=== PATIENT | female | born 1995 | race Caucasian/White ===

== ENCOUNTER 2021-09-13 11:30 | Emergency (ER) | payer BC, SELFPAY ==
[2021-09-13 11:55] VITALS: BP 109/66; PULSE 113; RESP 18; TEMP 36.2; O2SAT 99
--- NOTE | 2021-09-13 12:14 | ED.URI ---
HPI - URI/Sore Throat General Chief Complaint: Upper Respiratory Infection Stated Complaint: Fever,Body Aches,Chills Time Seen by Provider: 09/13/21 12:14 Source: patient Mode of arrival: ambulatory Limitations: no limitations History of Present Illness HPI Narrative: 26-year-old female presents with complaint of intermittent fever, chills, body aches, sensitive skin, fatigue for 4 days. Was able to go on a school trip to [place] this weekend due to feeling better. Yesterday had another temp of 103.5 and today 102. Is alternate between ibuprofen and Tylenol to treat her symptoms. No known COVID exposure. Denies nausea vomiting diarrhea. Denies cough, congestion and sore throat. No urinary symptoms. Systems reviewed and negative except as noted above. Related Data Home Medications Medication Instructions Recorded Confirmed norethindrone-e.estradiol-iron 1 tablet PO DAILY 09/13/21 09/13/21 [Blisovi Fe 06/03 (28)] Allergies Allergy/AdvReac Type Severity Reaction Status Date / Time No Known Allergies Allergy Verified 09/13/21 12:06 Review of Systems Review of Systems: CONSTITUTIONAL: Reports fever, chills, or sweats. EYES: Denies visual changes, redness, or discharge. ENT: Denies rhinorrhea, congestion, sore throat, or otalgia. CARDIOVASCULAR: Denies chest pain, palpitations, or edema. RESPIRATORY: Denies cough or dyspnea. GASTROINTESTINAL: Denies abdominal pain, nausea, vomiting, or diarrhea. GENITOURINARY: Denies dysuria or hematuria. SKIN: Denies rash or itching. MUSCULOSKELETAL: Denies back pain, joint pain. Reports myalgia. NEUROLOGIC: Denies headache, numbness, or weakness. PSYCHIATRIC: Denies anxiety or depression. All other systems reviewed are negative, except as documented in HPI. PMFSH Comments At time of signature, agree with nursing past medical, surgical, social and family history. There is no relevant family history pertinent to the presenting complaint. Exam Narrative: GENERAL: This is a well-nourished, well-developed patient, in no apparent distress. HEAD: normocephalic, atraumatic. EYES: PERRL. Sclera clear/white. Vision is grossly intact. EARS: External ears normal, auditory canals clear and without drainage, TMs normal without perforation. Hearing grossly intact. NOSE: External nose normal with no obvious nasal discharge, nares without redness, no rhinorrhea. THROAT: Mucous membranes moist, posterior pharynx clear. NECK: Neck supple, non-tender without lymphadenopathy, masses or thyromegaly. CARDIOVASCULAR: Regular rate and rhythm without murmurs, gallops, or rubs. RESPIRATORY: Clear to auscultation. Breath sounds equal bilaterally. No wheezes, rales, or rhonchi. SKIN: warm, Dry, intact with no suspicious lesions or rash, good texture and turgor. NEURO: awake, alert, and oriented to person, place and time. There were no obvious focal neurologic abnormalities. EXTREMITIES: Normal range of motion to all extremities. Course Course Level of Care: Express Care Visit Vital Signs Vital signs: Vital Signs Temperature 36.2 C L 09/13/21 11:55 Pulse Rate 113 H 09/13/21 11:55 Respiratory Rate 18 09/13/21 11:55 Blood Pressure 109/66 09/13/21 11:55 Pulse Oximetry 99 09/13/21 11:55 Temperature 36.2 C L 09/13/21 11:55 Pulse Rate 113 H 09/13/21 11:55 Respiratory Rate 18 09/13/21 11:55 Blood Pressure 109/66 09/13/21 11:55 Pulse Oximetry 99 09/13/21 11:55 Reviewed MDM - URI/Sore Throat MDM Narrative Medical decision making narrative: Negative COVID and influenza test. Afebrile at urgent care. Will discharge with viral syndrome. Patient is aware of diagnosis, understands and agrees to treatment plan. Anticipatory guidance given. Patient agrees to follow-up as directed and is aware of reasons to seek care at the emergency department. Portions of this record may have been created with voice recognition software Differential Diagnosis Differential diagnosis: Anh
== END 2021-09-13 12:42 | disposition home or self-care (01) ==
PROVIDERS: Emergency Provider Nurse Practitioner Family
DX: B34.9 Viral infection, unspecified (principal); Z20.822 Contact with and (suspected) exposure to COVID-19
CPT/HCPCS: 87426; 87804; 99203; C9803; G0463

== ENCOUNTER 2024-04-12 21:37 | Emergency (ER) | payer BC, SELFPAY ==
--- NOTE | ~2024-04-12 | US_ITS ---
FIRST TRIMESTER ULTRASOUND 04/12/2024 22:47 FIELD ARTILLERY SENIOR SERGEANT Ordering provider: Diya Dumont PA-C History: . 6 weeks, vag bleeding, RLQ pain, r/o ectopic . Comparison: None. FINDINGS: INTRAUTERINE GESTATIONAL SAC: Present. 0.9 cm. Equivalent to 5 weeks and 5 days YOLK SAC: Present. Measures 0.25 cm. POLE: Not seen. UTERUS: The uterus measures 9.2x 4.7x 5.5 cm. in length which is within normal limits. Fibroid is see n measuring 2.1 x 1.6 x 2.3 cm. FREE FLUID: None. OVARIES: Normal in size with the right measuring 4.4x 3.1x 4.5 cm. and the left measuring 2.4x 1.3x 1 .9 cm. Doppler flow is demonstrated within both ovaries. ADNEXAL MASSES: Right Complex cystic lesion is seen most likely corpus luteum measuring 2.7 x 2.6 x 3 .2 cm. IMPRESSION: Intrauterine with nonvisualization of the pole. Gestational sac and yolk sac are note d equivalent to 5 weeks and 5 days gestation. AJ is December 08, 2024. Follow-up advised. Reviewed, dictated and finalized at location A. D ARTILLERY SENIOR SERGEANT IMPRESSION: Intrauterine with nonvisualization of the pole. Gestational sac and yolk sac are noted equivalent to 5 weeks and 5 days gestation. AJ is December 08, 2024. Follow-up advised.
[2024-04-12 21:58] VITALS: BP 113/68; PULSE 81; RESP 14; O2SAT 99
--- NOTE | 2024-04-12 22:07 | ED_ITS ---
HPI - General Chief complaint: Vaginal Bleeding Stated complaint: 6 weeks preg, bleeding past 36 hours Time Seen by Provider: 04/12/24 21:41 Source: patient Mode of arrival: ambulatory Limitations: no limitations History of Present Illness HPI Narrative: Patient is a 29 y/o female who presents to the ED with c/o vaginal bleeding. Patient is and currently approx [address] Reji nichols. States since yesterday afternoon, she has been having brown vaginal spotting. Denies bright red bleeding. Also reports having intermittent pain in her R lower abdomen since yesterday. Contacted the on-call office number today and was referred to the ED to rule out ectopic. Patient reports intermittent nausea, denies vomiting. Denies dysuria or hematuria. Denies fevers. Related Data Home Medications Medication Instructions Recorded Confirmed norethindrone 1 mg-ethinyl 1 tablet PO DAILY 09/13/21 09/13/21 estradiol 20 mcg (21)-iron 75 mg (7) tablet (Blisovi Fe 06/03 (28)) Allergies Allergy/AdvReac Type Severity Reaction Status Date / Time No Known Allergies Allergy Verified 04/12/24 21:38 Review of Systems Review of Systems: All systems reviewed & are unremarkable except as noted in HPI. All systems reviewed & are unremarkable except as noted in HPI and below Exam Narrative: GENERAL: Well appearing, well-nourished, non-toxic, in no acute distress. HEAD: Normocephalic, atraumatic. RESPIRATORY: Airway patent, respirations nonlabored. Clear to auscultation bilaterally, no rales, rhonchi, wheezing. CARDIOVASCULAR: Regular rate and rhythm without murmurs, rubs, or gallops. ABDOMINAL: Soft, mild tenderness palpation in right lower quadrant, nondistended. Normoactive BS. MUSCULOSKELETAL: Moves all extremities. No gross deformities. SKIN: Warm, dry, normal color. NEURO: A&O X3. Speech clear. Cranial nerves II-XII grossly intact. Steady gait. No ataxic movements. PSYCHIATRIC: Appropriate mood and affect. Normal interaction. Course Vital Signs Vital signs: Vital Signs Pulse Rate 81 04/12/24 21:58 Respiratory Rate 14 04/12/24 21:58 Blood Pressure 113/68 04/12/24 21:58 Pulse Oximetry 99 04/12/24 21:58 Oxygen Delivery Room Air 04/12/24 21:58 Pulse Rate 81 04/12/24 21:58 Respiratory Rate 14 04/12/24 21:58 Blood Pressure 113/68 04/12/24 21:58 Pulse Oximetry 99 04/12/24 21:58 Oxygen Delivery Room Air 04/12/24 21:58 MDM - OB/Uterine Contractions MDM Narrative Medical decision making narrative: Patient presented to ED with vaginal bleeding, approximately 6 weeks gestation, . Sent to rule out ectopic. Reporting some discomfort in right lower quadrant. Vital signs are stable upon arrival. Patient is in no acute distress. Beta hCG is 7261. Patient's blood type is A positive, no indication for RhoGAM. Laboratory studies are otherwise unremarkable. UA is clear. OB ultrasound was obtained: IMPRESSION: Intrauterine with nonvisualization of the pole. Gestational sac and yolk sac are noted equivalent to 5 weeks and 5 days gestation. AJ is December 08, 2024. Follow-up advised. Does show normal vascular blood flow to both ovaries. Right-sided complex cystic lesion. Could be explaining pain. No evidence of ectopic . Discussed lab and imaging findings with patient. Advised she will need repeat hormone level in 48 hours to help determine viability of . Will place order for repeat beta hCG on Monday. Advised patient have very close follow-up with OBGYN for further evaluation. Advised to call Monday to inform of ED visit. Advised to continue monitoring bleeding, pelvic rest, given strict return precautions. Patient and family in agreement with plan and feels comfortable discharge home. Discharged in stable condition. Vital signs stable at time of D/C. Medical Records Attestation: I reviewed the patient's medical records. Lab Data Attestation: I reviewed the patient's lab results. 04/12/24 22:52 04/12/24 22:52 Labs: Lab Results 04/12/24 04/12/24 Range/Units 22:05 22:52 WBC 10.2 H (4.5-10.0) K/mm3 RBC 3.82 L (4.2-5.4) M/mm3 Hgb 11.7 L (12.0-15.0) g/dL Hct 33.4 L (37.0-47.0) % MCV 87.4 (80-100) fl MCH 30.6 (26-34) pg MCHC 35.0 (32-36) g/dl RDW 11.3 L (11.5-14.5) % Plt Count 205 (150-375) k/mm3 MPV 9.0 (7.4-10.4) fl Immature Gran % (Auto) 0.4 (0-0.5) % Neut % (Auto) 61.3 (45.5-73.1) % Lymph % (Auto) 29.7 (18.3-44.2) % [place] % (Auto) 6.9 (2.6-8.5) % Eos % (Auto) 1.5 (0-4.4) % Baso % (Auto) 0.2 (0.2-1.2) % Lymph # (Auto) 3.03 (0.9-3.2) K/mm3 [place] # (Auto) 0.7 H (0.1-0.6) K/mm3 Eos # (Auto) 0.2 (0-0.3) K/mm3 Baso # (Auto) 0.0 (0.0-0.1) K/mm3 Abs Immat Gran (auto) 0.04 H (0.00-0.031) K/mm3 Absolute Neuts (auto) 6.3 (1.3-6.7) K/mm3 Absolute Nucleated RBC 0.000 (0.0-0.012) K/mm3 Nucleated RBC % 0.0 (0.0-0.2) % Sodium 135 L (137-145) mmol/L Potassium 3.6 (3.4-5.0) mmol/L Chloride 104 (98-107) mmol/L Carbon Dioxide 25 (22-30) mmol/L Anion Gap 6 (4-12) mmol/L BUN 16 (7-17) mg/dL Creatinine 0.80 (0.7-1.0) mg/dL Estim Creat Clear Calc 86 ml/min Estimated GFR > 60 (59 - ) Glucose 93 (65-110) mg/dL Calcium 8.7 (8.4-10.2) mg/dL Total Bilirubin 0.3 (0.2-1.3) mg/dL AST 20 (14-36) U/L ALT 16 (6-35) U/L Alkaline Phosphatase 49 (38-126) U/L Total Protein 6.0 L (6.3-8.2) g/dL Albumin 3.9 (3.5-5.1) g/dL Beta HCG, Quant 7261.40 mIU/ML Urine Color Yellow (Yellow) Urine Appearance Clear (Clear) Urine pH 6.5 (5.0-9.0) Ur Specific [place] 1.010 (1.001-1.035) Urine Protein Negative (Negative) mg/dL Urine Glucose (UA) Negative (Negative) mg/dL Urine Ketones Negative (Negative) mg/dL Ur Blood (Man) Negative (Negative) Urine Nitrate Negative (Negative) Urine Bilirubin Negative (Negative) Urine Urobilinogen 0.2 (<2.0) mg/dL Leukocyte Esterase Rfl Negative (Negative) MARCO/UL POC Urine HCG, Qual Positive (Negative) Blood Type A Positive Antibody Screen Negative Screen Not Reportable Doses of RhIg Required 0 Imaging Data Attestation: I personally reviewed and interpreted this imaging study as follows: Radiologist's impression: ITS Impressions Obstetrics Ultrasound 04/13/24 00:04 IMPRESSION: Intrauterine with nonvisualization of the pole. Gestational sac and yolk sac are noted equivalent to 5 weeks and 5 days gestation. AJ is December 08, 2024. Follow-up advised. Discharge Plan Discharge Clinical Impression: Threatened Patient Disposition: Home, Self-Care Condition: Stable Instructions: Antibiotic Form, Threatened Miscarriage (ED), Abnormal (Dysfunctional) Uterine Bleeding (ED) Additional Instructions: Continue to monitor bleeding. Follow-up closely with OBGYN for further evaluation. Call office on Monday morning to make follow-up appointment and inform of ED visit. Obtain repeat beta-hCG on Monday at outpatient lab. Take lab order sheet with you. Recommend pelvic rest until seen by OBGYN (no heavy lifting, strenuous activity, intercourse, tampons). Return to the ED if you experience worsening or severe pain, severe bleeding, feeling dizzy or lightheaded, passing out, unable to keep down food or drink, or any other symptoms of concern. Prescriptions: No Action norethindrone-e.estradiol-iron [Blisovi Fe 06/03 (28)] 1 mg-20 mcg (21)/75 mg (7) tablet 1 tablet PO DAILY Other Ambulatory Orders: Beta HCG Quantitative (Routine) Timeframe: 20240415 Location: Determined by Patient Ordered By: Diya Dumont Follow-up/Referrals: Pooja Patrciio MD [Physician] - (OBGYN) UNKNOWN,DOCTOR [Primary Care Provider] - Time of Disposition: 00:21
[2024-04-12 22:14] LABS: BEDSIDEPREGUCG Positive (Negative)
[2024-04-12 23:05] LABS: Basophils Percent Auto 0.2 % (0.2-1.2); Eosinophils Absolute Auto 0.2 K/mm3 (0-0.3); Eosinophils Percent Auto 1.5 % (0-4.4); Hematocrit 33.4 % (37.0-47.0); Hemoglobin 11.7 g/dL (12.0-15.0); Immature Granulocyte Absolute 0.04 K/mm3 (0.00-0.031); Immature Granulocyte Percent A 0.4 % (0-0.5); Lymphocytes Absolute Auto 3.03 K/mm3 (0.9-3.2); Lymphocytes Percent Auto 29.7 % (18.3-44.2); Mean Corpuscular Hemoglobin 30.6 pg (26-34); Mean Corpuscular Volume 87.4 fl (80-100); Monocytes Absolute Auto 0.7 K/mm3 (0.1-0.6); Monocytes Percent Auto 6.9 % (2.6-8.5); Neutrophils Absolute Auto 6.3 K/mm3 (1.3-6.7); Neutrophils Percent Auto 61.3 % (45.5-73.1); Platelet Count Result 205 k/mm3 (150-375); Red Blood Count 3.82 M/mm3 (4.2-5.4); Red Cell Distribution Width 11.3 % (11.5-14.5); White Blood Count 10.2 K/mm3 (4.5-10.0)
[2024-04-12 23:07] LABS: Add Urine Microscopic? NO; Appearance Urine Clear (Clear); Bilirubin Urine Negative (Negative); Blood Urine Negative (Negative); Color Urine Yellow (Yellow); Glucose Urine UA Negative (Negative); Ketones Urine Negative (Negative); Leukocyte Esterase Ur Negative LEU/UL (Negative); Nitrate Urine Negative (Negative); Protein Urine Negative (Negative); Urobilinogen Urine 0.2 mg/dL (<2.0); pH Urine 6.5 (5.0-9.0)
[2024-04-12 23:14] LABS: Alanine Aminotransferase 16 U/L (6-35); Albumin Level 3.9 g/dL (3.5-5.1); Alkaline Phosphatase 49 U/L (38-126); Anion Gap 6 mmol/L (4-12); Aspartate Amino Transferase 20 U/L (14-36); Bilirubin,Total 0.3 mg/dL (0.2-1.3); Blood Urea Nitrogen 16 mg/dL (7-17); Calcium 8.7 mg/dL (8.4-10.2); Carbon Dioxide 25 mmol/L (22-30); Chloride 104 mmol/L (98-107); Estimated CRCL calculation 86 ml/min; Estimated Glomerular Filt Rate > 60; Glucose 93 mg/dL (65-110); Potassium 3.6 mmol/L (3.4-5.0); Sodium 135 mmol/L (137-145)
[2024-04-13 00:27] VITALS: BP 126/72; PULSE 76; RESP 15; O2SAT 98
== END 2024-04-13 00:29 | disposition home or self-care (01) ==
PROVIDERS: Emergency Provider Physician Assistant
DX: O20.0 Threatened abortion (principal); Z3A.01 Less than 8 weeks gestation of pregnancy
CPT/HCPCS: 36415; 76801; 76817; 80053; 81003; 81025; 84702; 85025; 85461; 86850; 86900; 86901; 99284

== ENCOUNTER 2024-04-15 16:27 | Outpatient (CLI) | payer BC, SELFPAY | END 2024-04-15 16:28 | disposition home or self-care (01) | LOC: ANHLAB 16:29 | PROVIDERS: Visit Provider Physician Assistant | DX: O20.0 Threatened abortion (principal); Z3A.00 Weeks of gestation of pregnancy not specified | CPT/HCPCS: 36415; 84702 ==

== ENCOUNTER 2024-04-17 16:12 | Outpatient (CLI) | payer BC, SELFPAY | END 2024-04-17 16:13 | disposition home or self-care (01) | LOC: ANHLAB 16:16 | PROVIDERS: Visit Provider Obstetrics & Gynecology Gynecology | DX: O26.851 Spotting complicating pregnancy, first trimester (principal); Z3A.00 Weeks of gestation of pregnancy not specified | CPT/HCPCS: 36415; 84702 ==

== ENCOUNTER 2024-04-24 14:25 | Outpatient (CLI) | payer BC, SELFPAY | END 2024-04-24 14:26 | disposition home or self-care (01) | PROVIDERS: Visit Provider Obstetrics & Gynecology Gynecology | DX: O26.851 Spotting complicating pregnancy, first trimester (principal); Z3A.00 Weeks of gestation of pregnancy not specified | CPT/HCPCS: 36415; 86850; 86900; 86901 ==

== ENCOUNTER 2024-04-24 15:20 | Outpatient (CLI) | payer BC, SELFPAY ==
--- NOTE | ~2024-04-24 | US_ITS ---
EXAMINATION: US OB <= 14 weeks fetus DATE: 04/24/2024 15:40 INDICATION: Inconclusive viability TECHNIQUE: Real-time pelvic ultrasound utilizing transabdominal probe was performed. The angel silva radiologist was not present for the study. COMPARISON: None. FINDINGS: The uterus measures 9.0 x 4.3 x 5.4 cm. There is an intrauterine gestational sac. A yolk sac and fet al pole are identified. The crown rump length measures 10 mm, which correlates with an estimated gest ational age of 7 weeks and 0 days. heart motion is identified measuring 154 beats per minute (b pm) by M-mode Doppler. There are a couple small hypoechoic likely fibroids along the anterior uterus measuring 3.5 cm and 1.7 cm in maximal diameters. The right ovary measures 4.0 x 3.0 x 4.2 cm. There is a 3.3 cm centrally anechoic likely corpus luteu m cyst in the right ovary. The left ovary measures 2.2 x 1.7 x 1.9 cm. There is no free fluid in the pelvis. IMPRESSION: 1. Single living fetus with heart rate of 154 bpm. 2. Gestational age by ultrasound of 7 weeks 0 day(s) +/- 4 day(s) with ultrasound estimated date of delivery (AJ) of 12/11/2024. 3. A couple fibers measuring 1.7 cm 3.5 cm along the anterior uterine body. Reviewed, dictated and finalized at location A. ARIAN IMPRESSION: 1. Single living fetus with heart rate of 154 bpm. 2. Gestational age by ultrasound of 7 weeks 0 day(s) +/- 4 day(s) with ultraso und estimated date of delivery (AJ) of 12/11/2024. 3. A couple fibers measuring 1.7 cm 3.5 cm along the anterior uterine body.
== END 2024-04-24 15:21 | disposition home or self-care (01) ==
LOC: MICIMG 15:21
PROVIDERS: PCP Obstetrics & Gynecology Gynecology; Visit Provider Obstetrics & Gynecology Gynecology
DX: O36.80X0 Pregnancy with inconclusive fetal viability, not applicable or unspecified (principal); Z3A.01 Less than 8 weeks gestation of pregnancy
CPT/HCPCS: 76801

== ENCOUNTER 2024-07-15 15:47 | Outpatient (CLI) | payer BC, SELFPAY ==
[2024-07-15 16:02] LABS: Hematocrit 31.9 % (37.0-47.0); Hemoglobin 11.2 g/dL (12.0-15.0); Mean Corpuscular HGB Conc 35.1 g/dl (32-36); Mean Corpuscular Hemoglobin 30.8 pg (26-34); Mean Corpuscular Volume 87.6 fl (80-100); Mean Platelet Volume 8.6 fl (7.4-10.4); Platelet Count Result 216 k/mm3 (150-375); Red Blood Count 3.64 M/mm3 (4.2-5.4); Red Cell Distribution Width 12.3 % (11.5-14.5); White Blood Count 10.1 K/mm3 (4.5-10.0)
[2024-07-15 16:39] LABS: Alanine Aminotransferase 14 U/L (6-35); Albumin Level 3.9 g/dL (3.5-5.1); Alkaline Phosphatase 59 U/L (38-126); Anion Gap 11 mmol/L (4-12); Aspartate Amino Transferase 21 U/L (14-36); Bilirubin,Total 0.2 mg/dL (0.2-1.3); Blood Urea Nitrogen 13 mg/dL (7-17); CRP 0.9 mg/dL (<1.0); Calcium 8.9 mg/dL (8.4-10.2); Carbon Dioxide 20 mmol/L (22-30); Chloride 103 mmol/L (98-107); Estimated Glomerular Filt Rate > 60; Glucose 97 mg/dL (65-110); Potassium 3.7 mmol/L (3.4-5.0); Sodium 134 mmol/L (137-145)
[2024-07-15 16:45] LABS: Erythrocyte Sedimentation Rate 22 mm/hr (0-20)
[2024-07-15 18:34] LABS: Iron 75 ug/dL (37-170)
[2024-07-15 18:45] LABS: Percent Iron Saturation 25 % (20-50)
== END 2024-07-15 15:48 | disposition home or self-care (01) ==
LOC: ANHLAB 15:49
PROVIDERS: PCP Obstetrics & Gynecology Gynecology; Visit Provider Internal Medicine Hematology & Oncology
DX: R79.89 Other specified abnormal findings of blood chemistry (principal)
CPT/HCPCS: 36415; 80053; 81256; 82728; 83540; 83550; 84238; 85027; 85652; 86140

== ENCOUNTER 2024-07-23 15:20 | Outpatient (CLI) | payer BC, SELFPAY ==
--- NOTE | ~2024-07-23 | US_ITS ---
EXAMINATION: US OB /maternal detail DATE: 07/23/2024 15:51 INDICATION: anatomic survey. TECHNIQUE: Real-time ultrasound of the pelvis was performed. COMPARISON: Ultrasound 04/24/2024, 04/12/2024 FINDINGS: There is a single living fetus in transverse lie. The placenta is posterior, 7 cm from the cervix. T he cervical length is 4.8 cm on transabdominal images, which is normal. heart rate is 152 beats per minute (bpm). The amniotic fluid volume is subjectively normal. There are 2.8 cm and 3.3 cm subs erosal fibroids anteriorly. The following biometric data were obtained: Biparietal diameter (BPD): 4.7 cm; head circumference (HC): 18.3 cm; abdominal circumference (AC): 15 .5 cm; femur length (FL): 3.0 cm. These measurements are concordant. Estimated weight is 335 g +/- 50 g, which correlates with the 62nd percentile when 12/11/24 is u sed as estimated date of delivery. As single measurements, these parameters are each equal to the following estimated gestational ages: BPD: 20 weeks 2 days. HC: 20 weeks 5 days. AC: 20 weeks 5 days. FL: 19 weeks 3 days. estimated gestational age based solely on measurements from this exam is 20 weeks 2 days +/- 1 weeks 3 days. The cerebral ventricles, cerebellum, cisterna magna, nuchal fold, and spine are normal. The heart is normal. The diaphragm, stomach, kidneys, and bladder are normal. There are two umbilical arteries to yield a 3-vessel cord. The cord insertion is normal. IMPRESSION: 1. Single living fetus in transverse lie. 2. Estimated weight is 335 g +/- 50 g, which correlates with the 62nd percentile when 12/11/24 is used as estimated date of delivery. This date was set by ultrasound on 04/24/2024. 3. Normal anatomic survey. 4. Uterine fibroids. Reviewed, dictated and finalized at location B. IMPRESSION: 1. Single living fetus in transverse lie. 2. Estimated weight is 335 g +/- 50 g, which correlates with the 62nd rcentile when 12/11/24 is used as estimated date of delivery. This date was set by ultrasound on 04/24/2024. 3. Normal anatomic survey. 4. Uterine fibroids.
== END 2024-07-23 15:21 | disposition home or self-care (01) ==
PROVIDERS: PCP Obstetrics & Gynecology Gynecology; Visit Provider Obstetrics & Gynecology Gynecology
DX: Z36.9 Encounter for antenatal screening, unspecified (principal); Z3A.20 20 weeks gestation of pregnancy
CPT/HCPCS: 76805

== ENCOUNTER 2024-10-13 15:27 | Observation (INO) | payer BC, OTHER, SELFPAY ==
[2024-10-13] VITALS (57 sets, daily range): BP systolic 123–138; BP diastolic 63–86; PULSE 61–120; O2SAT 97–100; BMI 23.8
[2024-10-13 16:23] LABS: Add Urine Microscopic? YES; Appearance Urine Clear (Clear); Bacteria Urine 2+ /hpf; Bilirubin Urine Negative (Negative); Blood Urine 2+ (Negative); Color Urine Yellow (Yellow); Glucose Urine UA Negative (Negative); Ketones Urine Negative (Negative); Leukocyte Esterase Ur 2+ LEU/UL (Negative); Need Manual Microscopic Reviewed; Nitrate Urine Negative (Negative); Non Pathogenic Casts 0-2; Protein Urine Negative (Negative); RBC Urine 0-2 /hpf (0-2); Squamous Epithelial Cell Urine Few /hpf (Few); Urobilinogen Urine 0.2 mg/dL (<2.0); WBC Urine 21-50 /hpf (0-3); pH Urine 6.5 (5.0-9.0)
[2024-10-13] MEDS: TERBUTALINE SULFATE 1 MG/ML VIAL 0.25 MG SUB-Q ×2 (16:30→18:25)
--- NOTE | 2024-10-13 16:47 | OBADM ---
This patient, Theresa Joseph, admitted to the OB room OB Post 115 for observation. Patient/family oriented to hospital policies and general routines including ID bracelet, bed and alarms, visiting hours, pain management, procedures, bathroom and other care routines, personal items, smoking policy, room service/diet, and visiting hours. Patient/Family are encouraged to report perceived risks to care and to ask questions if they do not understand what they are told or what they should do.
[2024-10-13 17:01] LABS: Fetal Fibronectin Negative
--- OUTSIDE RECORDS SUMMARY | 2024-10-13 18:11 | XMS_ITS | Clinical Summary ---
[facility] Address [address] [address] Care Team Providers Care Bunghole Borer Name Role Phone Unavailable Primary Care Provider Unavailabl e Allergies No known active allergies Medications PNV no.153/FA/om3/d rubio/epa/fish ( GUMMIES ORAL) Take by mouth daily. Active OMEGA-3 FATTY ACIDS-FISH OIL ORAL Take 800 mg by mouth daily. Active choline salicyl/mag salicylate (CHOLINE,MAGNES IUM SALICYLATE ORAL) Take 267 mg by mouth daily. Active clobetasoL 0.05 % topical gel (TEMOVATE) Apply to affected area Continuous as needed for Other (See Comment) (Exzema). Active Active Problems No known active problems Encounters Date Type Department Care Team Description 08/13/2024 External Device Data STL ABSTRACTION Provider, Abstract 07/31/2024 4:15 PM CDT Telephone Check Up [facility] - [place] [address] [place] [id number] Cliff Amin MD Elevated ferritin (Primary Dx) 07/24/2024 Orders Only [facility] - [place] [address] [place] [address] Cliff Amin MD 07/20/2024 External Device Data STL ABSTRACTION Provider, Abstract 07/19/2024 External Device Data STL ABSTRACTION Provider, Abstract 07/17/2024 External Device Data STL ABSTRACTION Provider, Abstract 07/16/2024 External Device Data STL ABSTRACTION Provider, Abstract 07/16/2024 External Device Data STL ABSTRACTION Provider, Abstract 07/16/2024 Orders Only [facility] [address] [place] [address] Cliff Amin MD 07/15/2024 3:00 PM PERSONAL INJURY PARALEGAL Office Visit [facility] [address] [place] [address] Cliff Amin MD Elevated ferritin (Primary Dx) from Last 3 Months Family History Medical History Relation Name Comments No Known Problems Father No Known Problems Mother Heart Disease Sister 1 No Known Problems Sister 2 Relation Name Status Comments Father Alive Mother Alive Sister 1 Alive Sister 2 Alive Social History Tobacco Use Types Packs/Day Years Used Date Smoking Tobacco: Never Smokeless Tobacco: Never Alcohol Use Standard Drinks/Week Comments Not Currently 0 (1 standard drink = 0.6 oz pure alcohol) Before prenancy- occasionally Comments Unknown Sex and Gender Information Value Date Recorded Sex Assigned at Not on file Legal Sex Female 8:46 AM PERSONAL INJURY PARALEGAL Gender Identity Not on file Sexual Orientation Not on file Last Filed Vital Signs Vital Sign Reading Time Taken Comments Blood Pressure 111/74 07/15/2024 3:02 PM PERSONAL INJURY PARALEGAL Pulse 95 07/15/2024 3:02 PM PERSONAL INJURY PARALEGAL Temperature 36.7 C (98.1 F) 07/15/2024 3:02 PM PERSONAL INJURY PARALEGAL Respiratory Rate 16 07/15/2024 3:02 PM PERSONAL INJURY PARALEGAL Oxygen Saturation 96% 07/15/2024 3:02 PM PERSONAL INJURY PARALEGAL Inhaled Oxygen Concentration - - Weight 65.9 kg (145 lb 3.2 oz) 07/15/2024 3:02 P M PERSONAL INJURY PARALEGAL Height 170.2 cm (5' 7) 07/15/2024 3:02 PM PERSONAL INJURY PARALEGAL Body Mass Index 22.74 07/15/2024 3:02 PM PERSONAL INJURY PARALEGAL Plan of Treatment Upcoming Encounters Date Type Department Care Team (Late st Contact Info) Description 02/03/2025 11:45 AM CDT Office Visit [facility] [address] [place] [address] Cliff Amin MD [address] [place] [address] Health Maintenance Due Date Last Done Comments DTAP/TDAP/TD VACCINES (1 - Tdap) 01/09/2012 HEPATITIS B VACCINES (1 of 3 - 19+ 3-dose series) 01/09/2012 HPV/Cotest (21-29) 2014 CERVICAL CANCER SCREENING 2023 HPV/Cotest (30-65) 2023 PAP SMEAR 2023 INFLUENZA VACCINE (#1) 2023 HPV VACCINES Aged Out No longer eligi ble based on patient's age to complete this topic Procedures Procedure Name Priority Date/Time Associated Diagnosis Comments COMPREHENSIVE METABOLIC PANEL Routine 07/15/2024 11:23 AM PERSONAL INJURY PARALEGAL CHG SOLUBLE TRANSFERRIN RECEPTOR Routine 07/15/2024 9:46 AM PERSONAL INJURY PARALEGAL from Last 3 Months Results * COMPREHENSIVE METABOLIC PANEL (07/15/2024 11:23 AM PERSONAL INJURY PARALEGAL) Blood us Cliff Amin MD CHEMISTRY ORDERABLES Final Resu lt * CHG SOLUBLE TRANSFERRIN RECEPTOR (07/15/2024 9:46 AM PERSONAL INJURY PARALEGAL) us Cliff Amin MD CHG - LABORATORY Final Result from Last 3 Months Insurance [facility] BLUE ACCESS/TRUE BLUE PPO
[2024-10-13] MEDS: NIFEdipine 10 MG CAPSULE PO (19:27)
[2024-10-13] MEDS: NITROFURANTOIN MONOHYD MACROCR 100 MG CAP PO (20:15)
--- NOTE | 2024-10-30 13:38 | PM.OBTRLD ---
OB - Triage/Final Diagnosis Visit Information Comments/Additional reasons for admission: I have assessed the risk for this patient, Theresa Joseph, and determined that she would benefit from observation care. Evaluation Laboratory results: Laboratory Tests 10/13/24 10/13/24 16:01 16:30 Urine Color Yellow Urine Appearance Clear Urine pH 6.5 Ur Specific [place] 1.010 Urine Protein Negative Urine Glucose (UA) Negative Urine Ketones Negative Ur Blood (Man) 2+ H Urine Nitrate Negative Urine Bilirubin Negative Urine Urobilinogen 0.2 Add Ur Microanalysis Reviewed Leukocyte Esterase Rfl 2+ H Urine RBC 0-2 Urine WBC 21-50 H Ur Squamous Epith Cells Few Urine Bacteria 2+ H Urine Casts 0-2 Fibronectin Negative Final Diagnosis (1) contractions: Code(s): O47.00 - False labor before 37 completed weeks of gestation, unspecified trimester Status: Acute
== END 2024-10-13 20:40 | disposition home or self-care (01) ==
PROVIDERS: Admitting Provider Obstetrics & Gynecology; Visit Provider Obstetrics & Gynecology
DX: O47.03 False labor before 37 completed weeks of gestation, third trimester (principal); Z3A.32 32 weeks gestation of pregnancy
CPT/HCPCS: 81001; 82731; 87086; 96372; A9270; G0378; G0379; J3105

== ENCOUNTER 2024-10-14 16:43 | Observation (INO) | payer BC, OTHER, SELFPAY ==
[2024-10-14] VITALS (13 sets, daily range): BP systolic 114–142; BP diastolic 70–87; PULSE 74–109
--- OUTSIDE RECORDS SUMMARY | 2024-10-14 16:48 | XMS_ITS | Clinical Summary ---
[facility] Organization [facility] Address [address] [place] [address] Care Team Providers Care Learning Technologies Specialist Name Role Phone Unavailable Primary Care Provider [...] 07/31/2024 4:15 PM CDT Telephone Check Up [facility] Oncology and Hematology - [place] [address] [place] [id number] Cliff Amin MD Elevated ferritin (Primary Dx) 07/24/2024 Orders Only [facility] Oncology and Hematology - [place] [address] [place] [address] Cliff Amin MD 07/20/2024 External Device Data STL ABSTRACTION Provider, Abstract 07/19/2024 External Device Data STL ABSTRACTION Provider, Abstract 07/17/2024 External Device Data STL ABSTRACTION Provider, Abstract 07/16/2024 External Device Data STL ABSTRACTION Provider, Abstract 07/16/2024 External Device Data STL ABSTRACTION Provider, Abstract 07/16/2024 Orders Only [facility] Oncology and Hematology [facility] [address] [place] [address] Cliff Amin MD 07/15/2024 3:00 PM READING INTERVENTION TEACHER Office Visit [facility] Oncology and Hematology [facility] [address] [place] [address] Cliff Amin MD Elevated ferritin [...] on file Legal Sex Female 8:46 AM READING INTERVENTION TEACHER Gender Identity Not on file Sexual Orientation Not on file Last Filed Vital Signs Vital Sign Reading Time Taken Comments Blood Pressure 111/74 07/15/2024 3:02 PM READING INTERVENTION TEACHER Pulse 95 07/15/2024 3:02 PM READING INTERVENTION TEACHER Temperature 36.7 C (98.1 F) 07/15/2024 3:02 PM READING INTERVENTION TEACHER Respiratory Rate 16 07/15/2024 3:02 PM READING INTERVENTION TEACHER Oxygen Saturation 96% 07/15/2024 3:02 PM READING INTERVENTION TEACHER Inhaled Oxygen Concentration - - Weight 65.9 kg (145 lb 3.2 oz) 07/15/2024 3:02 P M READING INTERVENTION TEACHER Height 170.2 cm (5' 7) 07/15/2024 3:02 PM READING INTERVENTION TEACHER Body Mass Index 22.74 07/15/2024 3:02 PM READING INTERVENTION TEACHER Plan of Treatment Upcoming Encounters Date Type Department Care Team (Late st Contact Info) Description 02/03/2025 11:45 AM CDT Office Visit [facility] Oncology and Hematology [facility] [address] [place] [address] Cliff Amin MD [address] [place] [address] Health Maintenance Due Date Last [...] COMPREHENSIVE METABOLIC PANEL Routine 07/15/2024 11:23 AM READING INTERVENTION TEACHER CHG SOLUBLE TRANSFERRIN RECEPTOR Routine 07/15/2024 9:46 AM READING INTERVENTION TEACHER from Last 3 Months Results * COMPREHENSIVE METABOLIC PANEL (07/15/2024 11:23 AM READING INTERVENTION TEACHER) Blood us Cliff Amin MD CHEMISTRY ORDERABLES Final Resu lt * CHG SOLUBLE TRANSFERRIN RECEPTOR (07/15/2024 9:46 AM READING INTERVENTION TEACHER) us Cliff Amin MD CHG - LABORATORY Final Result from Last 3 Months Insurance [facility] BLUE ACCESS/TRUE BLUE PPO
--- NOTE | 2024-10-14 17:00 | OBADM ---
This patient, Theresa Joseph, admitted to the OB room OB Post 113 for observation. Patient/family oriented to hospital policies and general routines including ID bracelet, bed and alarms, visiting hours, pain management, procedures, bathroom and other care routines, personal items, smoking policy, room service/diet, and visiting hours. Patient/Family are encouraged to report perceived risks to care and to ask questions if they do not understand what they are told or what they should do.
[2024-10-14] MEDS: TERBUTALINE SULFATE 1 MG/ML VIAL 0.25 MG SUB-Q (18:39)
[2024-10-14] MEDS: NIFEdipine 10 MG CAPSULE PO (18:39)
--- NOTE | 2024-10-16 08:27 | PM.OBTRLD ---
OB - Triage/Final Diagnosis Visit Information Reason for evaluation: threatened labor Comments/Additional reasons for admission: I have assessed the risk for this patient, Theresa Fragoso Opal, and determined that she would benefit from observation care.
== END 2024-10-14 20:14 | disposition home or self-care (01) ==
PROVIDERS: Admitting Provider Obstetrics & Gynecology Gynecology; Visit Provider Obstetrics & Gynecology Gynecology
DX: O47.03 False labor before 37 completed weeks of gestation, third trimester (principal); Z3A.32 32 weeks gestation of pregnancy
CPT/HCPCS: 96372; A9270; G0378; G0379; J3105

== ENCOUNTER 2024-10-15 13:11 | Observation (INO) | payer BC, OTHER, SELFPAY ==
--- NOTE | ~2024-10-15 | US_ITS ---
EXAMINATION: US umbilical doppler, US OB follow up DATE: 10/31/2024 08:55 INDICATION: Elevated umbilical Dopplers on prior examination TECHNIQUE: Real-time transabdominal obstetric ultrasound. Umbilical Doppler examination performed. FINDINGS: Comparison to multiple prior studies sequentially, with oldest reviewed study dated 2023. There is a single living fetus in vertex presentation. The placenta is anterior/fundal without place nta previa. There is an anterior succenturiate lobe. cardiac activity and movement is noted with a heart rate of 131 beats per minute. T he amniotic fluid volume is normal. ALDO measures 14 cm. The following biometric data were obtained: BPD: 85mm corresponds to gestational age 34 weeks 0 days. Head circumference: 306mm corresponds to gestational age 34 weeks 1 days. Abdominal circumference: 287mm corresponds to gestational age 32 weeks 5 days. Femur length: 61mm corresponds to gestational age 31 weeks 4 days. Estimated weight: 2019grams +/- 302grams, 6.4% by Hadlock method.] Umbilical artery pulsed Doppler demonstrates peak systolic to end-diastolic velocity ratios (S/D rati os) of 5.5 near the fetus, 4.8 in the mid cord, and 5.3 near the placenta (5th percentile = 2.07, 95t h percentile = 3.53). IMPRESSION: 1. Single living intrauterine in vertex presentation with an estimated gestational age of 34 weeks 4 days by inititial ultrasound. Diminished interval growth. 2. Anterior is succenturiate placenta without previa. 3: Elevated umbilical Doppler systolic/diastolic ratios indicate high resistance to blood flow which can be associated with placental insufficiency, IUGR and preeclampsia. Reviewed, dictated and finalized at location A. IMPRESSION: 1. Single living intrauterine in vertex presentation with an estimat ed gestational age of 34 weeks 4 days by inititial ultrasound. Diminished inter vitor growth. 2. Anterior is succenturiate placenta without previa. 3: Elevated umbilical Doppler systolic/diastolic ratios indicate high resistanc e to blood flow which can be associated with placental insufficiency, IUGR and preeclampsia.
--- NOTE | ~2024-10-15 | US_ITS ---
EXAMINATION: US OB follow up, US umbilical doppler DATE: 10/17/2024 08:57 INDICATION: Decelerations. Contractions. TECHNIQUE: Real-time transabdominal obstetric ultrasound. Umbilical artery Doppler examination also p erformed. FINDINGS: Comparison to multiple prior studies sequentially, with oldest reviewed study dated 2023. There is a single living fetus in vertex presentation. The placenta is fundal without placenta previ a. cardiac activity and movement is noted with a heart rate of 139 beats per minute. T he amniotic fluid volume is subjectively normal. Umbilical artery pulsed Doppler demonstrates peak systolic to end-diastolic velocity ratios (S/D rati os) 3.9 in the mid cord, and 6.9 near the placenta (5th percentile = 2.07, 95th percentile = 2.53). Elevated systolic/diastolic ratio in the umbilical artery is an indicator of increased resistance to blood flow in the umbilical artery, often suggesting placental or health concerns. The following biometric data were obtained: BPD: 84mm corresponds to gestational age 33 weeks 5 days. Head circumference: 306mm corresponds to gestational age 34 weeks 1 days. Abdominal circumference: 273mm corresponds to gestational age 31 weeks 2 days. Femur length: 60mm corresponds to gestational age 31 weeks 2 days. Estimated weight: 1833grams +/- 275grams, 18.2%.] IMPRESSION: 1. Single living intrauterine in vertex presentation with an estimated gestational age of 32 weeks 4 days by inititial ultrasound. Appropriate interval growth. 2. Normal placenta. 3: Elevated systolic/diastolic ratio in the umbilical artery, an indicator of increased resistance t o blood flow in the umbilical artery, often suggesting placental or health concerns. Reviewed, dictated and finalized at location A. IMPRESSION: 1. Single living intrauterine in vertex presentation with an estimat ed gestational age of 32 weeks 4 days by inititial ultrasound. Appropriate int erval growth. 2. Normal placenta. 3: Elevated systolic/diastolic ratio in the umbilical artery, an indicator of increased resistance to blood flow in the umbilical artery, often suggesting pl acental or health concerns.
--- NOTE | ~2024-10-15 | US_ITS ---
EXAMINATION: US umbilical doppler DATE: 10/24/2024 09:02 INDICATION: Third trimester with previously elevated umbilical arterial Doppler peak systol ic to diastolic velocity ratios. TECHNIQUE: Real-time ultrasound of the pelvis was performed. The interpreting radiologist was not pre sent for the study. COMPARISON: 10/17/2024 FINDINGS: There is a single living fetus in vertex presentation. The placenta is fundal with redemonstration o f an anterior succenturiate lobe. heart rate is 142 beats per minute (bpm). The amniotic fluid volume is subjectively normal. The umbilical artery demonstrates a peak systolic and diastolic velocity ratio of 5.4 at the fetus, 4 .4 in the mid cord and 2.4 near the placenta (5th%-95%: 2.11-3.67 at 33 weeks). IMPRESSION: 1. Single living fetus in vertex presentation with heart rate of 142 bpm. 2. Elevated umbilical artery peak systolic to diastolic velocity ratios at the mid cord and ins ertion of 4.4 and 5.4 respectively (5th%-95%: 2.11-3.67 at 33 weeks). 3. Fundal placenta with anterior succenturiate lobe. Reviewed, dictated and finalized at location A. IMPRESSION: 1. Single living fetus in vertex presentation with heart rate of 142 bpm . 2. Elevated umbilical artery peak systolic to diastolic velocity ratios at the mid cord and insertion of 4.4 and 5.4 respectively (5th%-95%: 2.11-3.67 a t 33 weeks). 3. Fundal placenta with anterior succenturiate lobe.
--- NOTE | ~2024-10-15 | US_ITS ---
EXAMINATION: US OB limited DATE: 10/16/2024 12:57 INDICATION: Variable cardiac decelerations. Assess amniotic fluid index. TECHNIQUE: Real-time ultrasound of the pelvis was performed. The interpreting radiologist was not pre sent for the study. COMPARISON: None. FINDINGS: There is a single living fetus in vertex presentation. The placenta is fundal and not low-lying. On cine images there appears to be a secondary anterior succenturiate lobe of the placenta. heart rate is 152 beats per minute (bpm). The amniotic fluid index is 17.0 cm, which is normal (5th%-95%: 8 .6-24.2 cm at 32 weeks estimated gestational age). 3.3 x 2.6 x 1.1 cm ovoid hypoechoic mass in the an terior abdominal wall consistent with a uterine fibroid. IMPRESSION: 1. Single living fetus in vertex presentation with heart rate of 152 bpm. 2. Normal amniotic fluid index of 17.0 cm. 3. Fundal placenta with suggestion of an anterior succenturiate lobe. 4. Uterine fibroid along the anterior uterine wall. Reviewed, dictated and finalized at location A. IMPRESSION: 1. Single living fetus in vertex presentation with heart rate of 152 bpm . 2. Normal amniotic fluid index of 17.0 cm. 3. Fundal placenta with suggestion of an anterior succenturiate lobe. 4. Uterine fibroid along the anterior uterine wall.
--- OUTSIDE RECORDS SUMMARY | 2024-10-15 13:26 | XMS_ITS | Clinical Summary ---
Author Organization [facility] Address [address] [place] [address] Care Team Providers Care Health Science Instructor Name Role Phone Unavailable Primary Care Provider [...] Hematology - [place] [address] [place] [phone] Cliff Amin MD Elevated ferritin (Primary Dx) 07/24/2024 Orders Only [facility] Oncology and Hematology - [place] [address] [place] [address] Cliff Amin MD 07/20/2024 External Device Data STL ABSTRACTION Provider, Abstract 07/19/2024 External Device Data STL ABSTRACTION Provider, Abstract 07/17/2024 External Device Data STL ABSTRACTION Provider, Abstract 07/16/2024 External Device Data STL ABSTRACTION Provider, Abstract 07/16/2024 External Device Data STL ABSTRACTION Provider, Abstract 07/16/2024 Orders Only [facility] Oncology and Hematology [facility] [address] [place] [address] Cliff Amin MD 07/15/2024 3:00 PM RADIO STATION OPERATOR Office Visit [facility] Oncology and Hematology [facility] [address] [place] [address] Cliff Amin MD Elevated ferritin [...] on file Legal Sex Female 8:46 AM RADIO STATION OPERATOR Gender Identity Not on file Sexual Orientation Not on file Last Filed Vital Signs Vital Sign Reading Time Taken Comments Blood Pressure 111/74 07/15/2024 3:02 PM RADIO STATION OPERATOR Pulse 95 07/15/2024 3:02 PM RADIO STATION OPERATOR Temperature 36.7 C (98.1 F) 07/15/2024 3:02 PM RADIO STATION OPERATOR Respiratory Rate 16 07/15/2024 3:02 PM RADIO STATION OPERATOR Oxygen Saturation 96% 07/15/2024 3:02 PM RADIO STATION OPERATOR Inhaled Oxygen Concentration - - Weight 65.9 kg (145 lb 3.2 oz) 07/15/2024 3:02 P M RADIO STATION OPERATOR Height 170.2 cm (5' 7) 07/15/2024 3:02 PM RADIO STATION OPERATOR Body Mass Index 22.74 07/15/2024 3:02 PM RADIO STATION OPERATOR Plan of Treatment Upcoming Encounters Date Type Department Care Team (Late st Contact Info) Description 02/03/2025 11:45 AM CDT Office Visit [facility] Oncology and Hematology [facility] [address] [place] [address] Cliff Amin MD [address] [place] [address] Health Maintenance Due Date Last [...] COMPREHENSIVE METABOLIC PANEL Routine 07/15/2024 11:23 AM RADIO STATION OPERATOR CHG SOLUBLE TRANSFERRIN RECEPTOR Routine 07/15/2024 9:46 AM RADIO STATION OPERATOR from Last 3 Months Results * COMPREHENSIVE METABOLIC PANEL (07/15/2024 11:23 AM RADIO STATION OPERATOR) Blood us Cliff Amin MD CHEMISTRY ORDERABLES Final Resu lt * CHG SOLUBLE TRANSFERRIN RECEPTOR (07/15/2024 9:46 AM RADIO STATION OPERATOR) us Cliff Amin MD CHG - LABORATORY Final Result from Last 3 Months Insurance [facility] BLUE ACCESS/TRUE BLUE PPO
[2024-10-15 13:45] VITALS: BP 125/81; PULSE 81
[2024-10-15 14:00] VITALS: BP 122/77; PULSE 84
[2024-10-15] MEDS: NIFEdipine 10 MG CAPSULE PO ×2 (14:12→15:01)
--- NOTE | 2024-10-15 17:22 | PC.NURSE ---
[phone]- paged Dr. Patricio. [phone]- Called Dr. Patricio. Informed of contractions noted q 5-7 min. Pt states that she feels them, but the are less intense than on admission. Orders received for Terbutaline and Celestone.
[2024-10-15] MEDS: TERBUTALINE SULFATE 1 MG/ML VIAL 0.25 MG SUB-Q (17:39)
[2024-10-15] MEDS: BETAMETHASONE SOD PHOS/ACETATE 30 MG/5 ML VIAL 12 MG IM (18:20)
[2024-10-15 18:22] VITALS: BP 126/78; PULSE 87
[2024-10-15] MEDS: NIFEdipine 10 MG CAPSULE 20 MG PO ×2 (19:09→23:36)
[2024-10-15 19:38] VITALS: BP 125/61; PULSE 127
[2024-10-15 21:42] VITALS: BP 117/66; PULSE 83
[2024-10-15 23:38] VITALS: BP 120/78; PULSE 102
[2024-10-16] VITALS (14 sets, daily range): BP systolic 124–137; BP diastolic 67–88; PULSE 86–111; RESP 18; TEMP 36.2–36.7; O2SAT 97–98; BMI 23.8
[2024-10-16] MEDS: NIFEdipine 10 MG CAPSULE 20 MG PO ×6 (03:14→22:56)
--- NOTE | 2024-10-16 08:24 | PM.OBTRLD ---
OB - Triage/Final Diagnosis Visit Information Reason for evaluation: threatened labor Comments/Additional reasons for admission: Patient returned with increased contractions on Procardia 10 q 4. Given extra dose and increased to 20 q 4. Contractions have decreased in intensity and frequency. Good FM. Tolerating med without side effects. Steroids given yesterday and will repeat today as cervix and frequent return to L&D for contractions. DC on bedrest/pelvic rest and continue meds. I have assessed the risk for this patient, Theresa Joseph, and determined that she would benefit from observation care. Evaluation Variability: Average (6-10) monitor accelerations: Present monitor decelerations: None Vital signs: Vital Signs - 24 hr 10/15/24 13:45 10/15/24 14:00 10/15/24 18:22 Temperature Pulse Rate 81 84 87 Respiratory Rate Blood Pressure 125/81 122/77 126/78 Pulse Oximetry 10/15/24 19:38 10/15/24 21:42 10/15/24 23:38 Temperature Pulse Rate 127 H 83 102 H Respiratory Rate Blood Pressure 125/61 117/66 120/78 Pulse Oximetry 10/16/24 03:11 10/16/24 03:12 10/16/24 03:12 Temperature 97.3 F L 97.3 F L Pulse Rate 90 94 Respiratory Rate 18 Blood Pressure 124/67 124/67 Pulse Oximetry 98 98 10/16/24 07:00 10/16/24 07:08 10/16/24 07:13 Temperature 97.1 F L Pulse Rate 111 H Respiratory Rate Blood Pressure 137/87 Pulse Oximetry 98
--- NOTE | 2024-10-16 17:38 | PC.NURSE ---
1720--Reported US results and strip to Dr. Patricio. Informed her of prolonged decels in 1500 hour.
[2024-10-16] MEDS: BETAMETHASONE SOD PHOS/ACETATE 30 MG/5 ML VIAL 12 MG IM (18:37)
[2024-10-17] VITALS (122 sets, daily range): BP systolic 124–136; BP diastolic 76–91; PULSE 43–131; TEMP 36.3–36.4; O2SAT 92–100
[2024-10-17] MEDS: NIFEdipine 10 MG CAPSULE 20 MG PO ×6 (03:10→23:00)
--- NOTE | 2024-10-17 07:21 | WPDOBADMIT ---
Obstetrics - Admit Note Admission Note: record reviewed. No pertinent additions to the history and/or any subsequent changes in the physical findings that are not consistent with the expected course of the were found. Additions to the history and/or subsequent changes in the physical findings follow. Patient here at 32 4/7 wks with threatened PTL. Patient in and out over last week with contractions. Has has increasing dose of procardia at each visit and is now on Proc 20 mg q 4 hours. Contractions remain 4-7 x/hour. Yesterday plan was for dc home but had variables with several contractions and then a prolonged deceleration. U/s with normal ALDO @ 17. FHTs otherwise cat I and reactive most of day. s/p steroids x 2. Will continue close obs. cervix vtx. Will check dopplers and EFW this am.
[2024-10-18] VITALS (10 sets, daily range): BP systolic 125–137; BP diastolic 66–86; PULSE 78–94; RESP 16–18; TEMP 36.1–36.8
[2024-10-18] MEDS: NIFEdipine 10 MG CAPSULE 20 MG PO ×6 (03:14→23:03)
--- NOTE | 2024-10-18 07:42 | PM.OBPNVD ---
OB - PN: Subj Subjective Date/time seen: 10/18/24 07:42 Interval history: No PIH sx. Patient comments: no complaints and other (contractions mild ) OB - PN: Obj Data Imaging Radiologist's impression: Impressions Doppler Study 10/17/24 09:01 IMPRESSION: 1. Single living intrauterine in vertex presentation with an estimated gestational age of 32 weeks 4 days by inititial ultrasound. Appropriate interval growth. 2. Normal placenta. 3: Elevated systolic/diastolic ratio in the umbilical artery, an indicator of increased resistance to blood flow in the umbilical artery, often suggesting placental or health concerns. Obstetrics Ultrasound 10/17/24 09:01 IMPRESSION: 1. Single living intrauterine in vertex presentation with an estimated gestational age of 32 weeks 4 days by inititial ultrasound. Appropriate interval growth. 2. Normal placenta. 3: Elevated systolic/diastolic ratio in the umbilical artery, an indicator of increased resistance to blood flow in the umbilical artery, often suggesting placental or health concerns. OB - PN A/P Assessment and Plan (1) 32 weeks gestation of : Code(s): Z3A.32 - 32 weeks gestation of Status: Acute Assessment and Plan: 32 5/7 weeks u/s with elevated dopplers. Will check q week. Continue monitoring. 1833g vtx (2) labor: Code(s): O60.00 - labor without delivery, unspecified trimester Status: Acute Assessment and Plan: Continue proc 20 q4 and bedrest Time Spent With Patient Time: Total time spent is greater than 50% in coordination of care (as documented) at patient's floor/unit and/or counseling patient: Exam Const: General: healthy appearing and comfortable Resp: Effort & Inspection: normal respiratory effort GI: GI Palp: No abdominal tenderness and Yes Soft to palpation Percussion: Yes other Auscultation: other (FHTs reactive with occ deceleration)
[2024-10-18] MEDS: TERBUTALINE SULFATE 1 MG/ML VIAL 0.25 MG SUB-Q (16:04)
[2024-10-19] VITALS (32 sets, daily range): BP systolic 121–134; BP diastolic 69–82; PULSE 56–119; RESP 16–18; TEMP 36.6–37.2; O2SAT 98–100
[2024-10-19] MEDS: NIFEdipine 10 MG CAPSULE 20 MG PO ×6 (02:30→22:55)
[2024-10-19] MEDS: ACETAMINOPHEN 500 MG TABLET 1000 MG PO (02:45)
[2024-10-19 03:25] LABS: Basophils Absolute Auto 0.1 K/mm3 (0.0-0.1); Basophils Percent Auto 0.5 % (0.2-1.2); Eosinophils Absolute Auto 0.3 K/mm3 (0-0.3); Hematocrit 38.1 % (37.0-47.0); Hemoglobin 13.3 g/dL (12.0-15.0); Immature Granulocyte Absolute 0.65 K/mm3 (0.00-0.031); Immature Granulocyte Percent A 3.9 % (0-0.5); Lymphocytes Absolute Auto 3.55 K/mm3 (0.9-3.2); Lymphocytes Percent Auto 21.4 % (18.3-44.2); Mean Corpuscular HGB Conc 34.9 g/dl (32-36); Mean Corpuscular Hemoglobin 30.6 pg (26-34); Mean Corpuscular Volume 87.8 fl (80-100); Mean Platelet Volume 9.4 fl (7.4-10.4); Monocytes Absolute Auto 1.2 K/mm3 (0.1-0.6); Monocytes Percent Auto 7.2 % (2.6-8.5); Neutrophils Absolute Auto 10.8 K/mm3 (1.3-6.7); Platelet Count Result 238 k/mm3 (150-375); Red Blood Count 4.34 M/mm3 (4.2-5.4); Red Cell Distribution Width 11.5 % (11.5-14.5); White Blood Count 16.6 K/mm3 (4.5-10.0)
[2024-10-19 03:37] LABS: Alanine Aminotransferase 31 U/L (6-35); Albumin Level 3.9 g/dL (3.5-5.1); Alkaline Phosphatase 122 U/L (38-126); Anion Gap 8 mmol/L (4-12); Aspartate Amino Transferase 37 U/L (14-36); Bilirubin,Total 0.2 mg/dL (0.2-1.3); Blood Urea Nitrogen 15 mg/dL (7-17); Calcium 9.3 mg/dL (8.4-10.2); Carbon Dioxide 21 mmol/L (22-30); Chloride 105 mmol/L (98-107); Estimated CRCL calculation 119 ml/min; Estimated Glomerular Filt Rate > 60; Glucose 91 mg/dL (65-110); Potassium 3.8 mmol/L (3.4-5.0); Sodium 134 mmol/L (137-145)
[2024-10-19 04:02] LABS: Syphilis IgG/IgM Antibody Non-Reactive (Nonreactive)
[2024-10-19 04:15] LABS: HIV 1/2 Ab P24 Ag Result Negative (Negative)
--- NOTE | 2024-10-19 10:27 | PC.NURSE ---
Dr. Patricio on the unit reviewing tracing for the last 24 hours. ordered repeat doppler 10/24.
[2024-10-19] MEDS: MULTIVIT/MIN/PREN/FOL AC/IRON TABLET 2 TAB PO (10:52)
--- NOTE | 2024-10-19 10:58 | P.PNOB_ITS ---
OB - PN: Subj Subjective Date/time seen: 10/19/24 10:58 Interval history: Ctx about 4-7 per hour felt as mild or not felt. Run of contractions x1 yesterday resolved with Terbutaline. FM excellent. Patient comments: no complaints OB - PN: Obj Data Labs 10/19/24 03:16 10/19/24 03:16 Labs: Laboratory Results - last 24 hr 10/19/24 03:16 WBC 16.6 H RBC 4.34 Hgb 13.3 Hct 38.1 MCV 87.8 MCH 30.6 MCHC 34.9 RDW 11.5 Plt Count 238 MPV 9.4 Immature Gran % (Auto) 3.9 H Neut % (Auto) 65.0 Lymph % (Auto) 21.4 Peach % (Auto) 7.2 Eos % (Auto) 2.0 Baso % (Auto) 0.5 Lymph # (Auto) 3.55 H Peach # (Auto) 1.2 H Eos # (Auto) 0.3 Baso # (Auto) 0.1 Abs Immat Gran (auto) 0.65 H Absolute Neuts (auto) 10.8 H Absolute Nucleated RBC 0.000 Nucleated RBC % 0.0 Sodium 134 L Potassium 3.8 Chloride 105 Carbon Dioxide 21 L Anion Gap 8 BUN 15 Creatinine 0.56 L Estim Creat Clear Calc 119 Estimated GFR > 60 Glucose 91 Calcium 9.3 Total Bilirubin 0.2 AST 37 H ALT 31 Alkaline Phosphatase 122 Total Protein 7.0 Albumin 3.9 Syphilis IgG/IgM Ab Non-reactive HIV 1&2 Ab/P24 Ag 4thGn Negative Blood Type A Positive Antibody Screen Negative OB - PN A/P Assessment and Plan (1) 32 weeks gestation of : Code(s): Z3A.32 - 32 weeks gestation of Status: Acute Assessment and Plan: 32 5/7 wks Dopplers elevated. Repeat 10/24 (2) labor: Code(s): O60.00 - labor without delivery, unspecified trimester Status: Acute Assessment and Plan: Continue Proc 20 q 4 and prn terb s/p steroids Time Spent With Patient Time: Total time spent is greater than 50% in coordination of care (as documented) at patient's floor/unit and/or counseling patient: Exam 2 Narrative: abdoment soft, nt FHTs reactive with occ deceleration Gail q 4-7 /hour with one run of q 2-5 min
[2024-10-19] MEDS: TERBUTALINE SULFATE 1 MG/ML VIAL 0.25 MG SUB-Q ×2 (17:15→21:14)
[2024-10-20] VITALS (19 sets, daily range): BP systolic 126–132; BP diastolic 79–86; PULSE 84–101; RESP 16–18; TEMP 36.4–36.6; O2SAT 95–98
[2024-10-20] MEDS: NIFEdipine 10 MG CAPSULE 20 MG PO ×6 (03:05→23:01)
--- NOTE | 2024-10-20 09:25 | P.PNOB_ITS ---
OB - PN: Subj Subjective Date/time seen: 10/20/24 09:25 Interval history: Ctx about 4-7 per hour felt as mild or not felt. Run of contractions x1 yesterday resolved with Terbutaline. FM excellent. Patient comments: no complaints OB - PN: Obj Data Labs 10/19/24 03:16 10/19/24 03:16 OB - PN A/P Assessment and Plan (1) 33 weeks gestation of : Code(s): Z3A.33 - 33 weeks gestation of Status: Acute Assessment and Plan: Elevated dopplers. Repeat at 1 week. FHTs reactive with only variables in last 24 hours (2) labor: Code(s): O60.00 - labor without delivery, unspecified trimester Status: Acute Assessment and Plan: Run of increased contractions again last pm. Resolved with terbutaline. Continue proc 20 q 4. Time Spent With Patient Time: Total time spent is greater than 50% in coordination of care (as documented) at patient's floor/unit and/or counseling patient: Exam 2 Narrative: abdomen soft nt FHTs reactive
[2024-10-20] MEDS: TERBUTALINE SULFATE 1 MG/ML VIAL 0.25 MG SUB-Q (18:12)
[2024-10-20] MEDS: MULTIVIT/MIN/PREN/FOL AC/IRON TABLET 2 TAB PO (18:43)
[2024-10-21] VITALS (57 sets, daily range): BP systolic 117–140; BP diastolic 74–86; PULSE 77–108; RESP 16; TEMP 36.5–36.6; O2SAT 95–100
[2024-10-21] MEDS: NIFEdipine 10 MG CAPSULE 20 MG PO ×5 (07:15→23:05)
--- NOTE | 2024-10-21 09:11 | P.PNOB_ITS ---
OB - PN: Subj Subjective Date/time seen: 10/21/24 09:11 Interval history: Contractions 4-7 per hour. No extra meds in 24 hours. Patient comments: no complaints OB - PN: Obj Data Labs 10/19/24 03:16 10/19/24 03:16 OB - PN A/P Assessment and Plan (1) 33 weeks gestation of : Code(s): Z3A.33 - 33 weeks gestation of Status: Acute Assessment and Plan: 33 05/21 s/p steroids Elevated dopplers (2) labor: Code(s): O60.00 - labor without delivery, unspecified trimester Status: Acute Assessment and Plan: Continue proc 20 q 4 Time Spent With Patient Time: Total time spent is greater than 50% in coordination of care (as documented) at patient's floor/unit and/or counseling patient: Exam 2 Narrative: abd soft, nt FHTs reactive [place]-ctx 4-7/hr
--- NOTE | 2024-10-21 17:53 | PHAR ---
PATEING BROUGHT FROM HOME A BOTTLE OF NATURE MADE CHOLINE 800MG PER 3 CAPSULES BOTTLE. PHARMACY IS UNABLE TO IDENTIFY CAPSULES DO NOT CONTAIN ANY TYPE OF MARKING
[2024-10-22] VITALS (51 sets, daily range): BP systolic 108–143; BP diastolic 62–92; PULSE 77–109; RESP 16; TEMP 36.3–37.1; O2SAT 96–99
[2024-10-22] MEDS: NIFEdipine 10 MG CAPSULE 20 MG PO ×7 (03:00→22:54)
--- NOTE | 2024-10-22 07:33 | P.PNOB_ITS ---
OB - PN: Subj Subjective Date/time seen: 10/22/24 07:33 Interval history: Contractions 4-7 per hour. No extra meds in 24 hours. Patient comments: no complaints OB - PN: Obj Data Labs 10/19/24 03:16 10/19/24 03:16 OB - PN A/P Assessment and Plan (1) 33 weeks gestation of : Code(s): Z3A.33 - 33 weeks gestation of Status: Acute Assessment and Plan: elevated dopplers-repeating at 1 wk (10/24) continue close observation (2) labor: Code(s): O60.00 - labor without delivery, unspecified trimester Status: Acute Assessment and Plan: No additional meds required last 24 hours. Continue Proc 20 q 4. Time Spent With Patient Time: Total time spent is greater than 50% in coordination of care (as documented) at patient's floor/unit and/or counseling patient: Exam 2 Narrative: abdomen soft, nt
--- NOTE | 2024-10-22 12:40 | PC.NURSE ---
Pt feels like her contractions are starting to increase in intensity. monitor reapplied.
--- NOTE | 2024-10-22 15:59 | PC.NURSE ---
Pt feeling more frequent contractions again. monitor applied. See OBIX for this documentation.
[2024-10-22] MEDS: OMEGA 3 POLYUNSAT FATTY ACIDS 1 GM CAP PO (18:13)
--- NOTE | 2024-10-22 18:24 | PHAR ---
PT'S HOME MED ONE A DAY WOMEN'S GUMMIES VERIFIED BY PHARMACY
[2024-10-22] MEDS: TERBUTALINE SULFATE 1 MG/ML VIAL 0.25 MG SUB-Q (20:31)
[2024-10-23] VITALS (66 sets, daily range): BP systolic 115–144; BP diastolic 65–88; PULSE 72–112; RESP 20; TEMP 36.2–36.8; O2SAT 97–100
[2024-10-23] MEDS: NIFEdipine 10 MG CAPSULE 20 MG PO ×6 (03:01→23:21)
--- NOTE | 2024-10-23 07:27 | P.PNOB_ITS ---
OB - PN: Subj Subjective Date/time seen: 10/23/24 07:27 Interval history: Run of stronger contractions last pm q 2-6 min resolved with Terb x 1. Patient comments: no complaints OB - PN: Obj Data Labs 10/19/24 03:16 10/19/24 03:16 OB - PN A/P Assessment and Plan (1) 33 weeks gestation of : Code(s): Z3A.33 - 33 weeks gestation of Status: Acute Assessment and Plan: 33 3/7 wks Dopplers elevated FHTs with no decels. Repeat dopplers (2) labor: Code(s): O60.00 - labor without delivery, unspecified trimester Status: Acute Assessment and Plan: Continue Proc 20 q 4 and as needed Terb. s/p steroids Time Spent With Patient Time: Total time spent is greater than 50% in coordination of care (as documented) at patient's floor/unit and/or counseling patient: Exam 2 Narrative: abdomen soft, nt FHTs reactive without decels [place] ctx 4-6 per hour except x 1
[2024-10-24] VITALS (15 sets, daily range): BP systolic 127–148; BP diastolic 73–115; PULSE 82–115; RESP 16–18; TEMP 36.6–36.9; O2SAT 95–99
[2024-10-24] MEDS: NIFEdipine 10 MG CAPSULE 20 MG PO ×6 (02:51→22:19)
--- NOTE | 2024-10-24 03:32 | PC.NURSE ---
0329- RN notified Dr. Patricio that patient has had 9 contractions in the last hour and that the Procardia dose was given a little early due to contractions. RN notified MD that patient states her contractions are feeling strong, but not painful, but that they do feel stronger than they have the last few days. RN notified MD of FHT tracing with moderate variability and accelerations. MD gave orders to give a dose of terb.
[2024-10-24] MEDS: TERBUTALINE SULFATE 1 MG/ML VIAL 0.25 MG SUB-Q ×2 (03:40→20:33)
--- NOTE | 2024-10-24 07:46 | P.PNOB_ITS ---
OB - PN: Subj Subjective Date/time seen: 10/24/24 07:46 Interval history: Run of stronger contractions last pm resolved with Terb x 1. Patient comments: no complaints OB - PN: Obj Data Labs 10/19/24 03:16 10/19/24 03:16 OB - PN A/P Assessment and Plan (1) 33 weeks gestation of : Code(s): Z3A.33 - 33 weeks gestation of Status: Acute Assessment and Plan: 33 4/7 wks elevated dopplers being repeated today (2) labor: Code(s): O60.00 - labor without delivery, unspecified trimester Status: Acute Assessment and Plan: Continue Proc 20 q 4 and PRN terb Time Spent With Patient Time: Total time spent is greater than 50% in coordination of care (as documented) at patient's floor/unit and/or counseling patient: Exam 2 Narrative: abdomen soft, nt FHTS reactive without decels [place] 4-7 ctx per hour
[2024-10-25] VITALS (51 sets, daily range): BP systolic 116–139; BP diastolic 66–91; PULSE 32–107; RESP 18–19; TEMP 36.6–36.8; O2SAT 89–100
[2024-10-25] MEDS: NIFEdipine 10 MG CAPSULE 20 MG PO ×6 (02:36→22:58)
--- NOTE | 2024-10-25 07:39 | P.PNOB_ITS ---
OB - PN: Subj Subjective Date/time seen: 10/25/24 07:39 Interval history: Terb x 1 yesterday Patient comments: no complaints OB - PN: Obj Data Labs 10/19/24 03:16 10/19/24 03:16 Imaging Radiologist's impression: Impressions Doppler Study 10/24/24 09:52 IMPRESSION: 1. Single living fetus in vertex presentation with heart rate of 142 bpm. 2. Elevated umbilical artery peak systolic to diastolic velocity ratios at the mid cord and insertion of 4.4 and 5.4 respectively (5th%-95%: 2.11-3.67 at 33 weeks). 3. Fundal placenta with anterior succenturiate lobe. OB - PN A/P Assessment and Plan (1) 33 weeks gestation of : Code(s): Z3A.33 - 33 weeks gestation of Status: Acute Assessment and Plan: IUP 33 5/7 Elevated dopplers still. Repeat q week. No decelerations. (2) labor: Code(s): O60.00 - labor without delivery, unspecified trimester Status: Acute Assessment and Plan: continue procardia 20 q 4 and prn Terb Time Spent With Patient Time: Total time spent is greater than 50% in coordination of care (as documented) at patient's floor/unit and/or counseling patient: Exam 2 Narrative: abdomen soft, nt FHTs reactive without decels
--- NOTE | 2024-10-25 08:57 | PC.NURSE ---
0705--Gave meds and pt prefers to go back to sleep.
--- NOTE | 2024-10-25 08:59 | PC.NURSE ---
0745--Dr. Patricio at bedside. Plan of care discussed.
[2024-10-25] MEDS: OMEGA 3 POLYUNSAT FATTY ACIDS 1 GM CAP PO (11:18)
[2024-10-25] MEDS: TERBUTALINE SULFATE 1 MG/ML VIAL 0.25 MG SUB-Q (17:23)
[2024-10-26] VITALS (21 sets, daily range): BP systolic 119–136; BP diastolic 69–88; PULSE 74–102; RESP 14–18; TEMP 36.6–36.9; O2SAT 97–98
[2024-10-26] MEDS: NIFEdipine 10 MG CAPSULE 20 MG PO ×6 (02:48→23:01)
[2024-10-26] MEDS: TERBUTALINE SULFATE 1 MG/ML VIAL 0.25 MG SUB-Q ×2 (04:16→17:40)
[2024-10-26] MEDS: OMEGA 3 POLYUNSAT FATTY ACIDS 1 GM CAP PO (11:05)
--- NOTE | 2024-10-26 11:31 | PM.OBPNVD ---
OB - PN: Subj Subjective Date/time seen: 10/26/24 11:31 Comfortable. Got a dose of terbutaline this morning. Feels fine now. AVSS ABD soft, nontender, gravid NST reactive TOCO: irregular contractions A: IUP at 33 6/7 weeks with contractions, stable. P: Continue care. OB - PN: Obj Data Labs 10/19/24 03:16 10/19/24 03:16 OB - PN A/P Time Spent With Patient Time: Total time spent is greater than 50% in coordination of care (as documented) at patient's floor/unit and/or counseling patient:
[2024-10-27] VITALS (59 sets, daily range): BP systolic 118–134; BP diastolic 73–84; PULSE 79–106; TEMP 36.3–36.8; O2SAT 95–100
[2024-10-27] MEDS: NIFEdipine 10 MG CAPSULE 20 MG PO ×6 (02:58→22:53)
[2024-10-27] MEDS: TERBUTALINE SULFATE 1 MG/ML VIAL 0.25 MG SUB-Q ×2 (03:27→17:45)
--- NOTE | 2024-10-27 08:06 | PC.NURSE ---
0705--Pt awakened for meds. Requests to wait for VS and NST. Will call out when awake.
--- NOTE | 2024-10-27 08:32 | PM.OBPNLAB ---
Pain Control Date/time seen: 10/27/24 08:32 Comfortable. Had an extra dose of terbutaline overnight. Feels fine this morning. No contractions. AVSS NST reactive TOCO: irregular contractions ABD soft, nontender, gravid, vertex EXT nontender A: IUP at 32 1/7 weeks with labor. P: Continue current care.
[2024-10-27] MEDS: OMEGA 3 POLYUNSAT FATTY ACIDS 1 GM CAP PO (10:28)
[2024-10-27] MEDS: ACETAMINOPHEN 500 MG TABLET 1000 MG PO (14:13)
[2024-10-28] VITALS (31 sets, daily range): BP systolic 131–134; BP diastolic 62–80; PULSE 72–102; RESP 14; TEMP 36.3–36.6; O2SAT 98–100
[2024-10-28] MEDS: NIFEdipine 10 MG CAPSULE 20 MG PO ×6 (02:55→23:12)
--- NOTE | 2024-10-28 06:41 | PC.NURSE ---
0600- Report given to Ethan Barrientos RN
[2024-10-28] MEDS: OMEGA 3 POLYUNSAT FATTY ACIDS 1 GM CAP PO (08:50)
--- NOTE | 2024-10-28 12:24 | PC.NURSE ---
Called Dr. Patricio re: pt contractions. Orders received for a one-time dose of Terbutaline.
[2024-10-28] MEDS: TERBUTALINE SULFATE 1 MG/ML VIAL 0.25 MG SUB-Q ×2 (12:36→17:43)
--- NOTE | 2024-10-28 16:25 | P.PNOB_ITS ---
OB - PN: Subj Subjective Date/time seen: 10/28/24 16:25 Interval history: Terb x 1 yesterday Patient comments: no complaints and pain well controlled OB - PN: Obj Data Labs 10/19/24 03:16 10/19/24 03:16 OB - PN A/P Assessment and Plan (1) 34 weeks gestation of : Code(s): Z3A.34 - 34 weeks gestation of Status: Acute Assessment and Plan: IUP 34 1/ elevated dop. plan repeat with EFW and ALDO on (2) labor: Code(s): O60.00 - labor without delivery, unspecified trimester Status: Acute Assessment and Plan: Cont Proc 20 q 4 and prn Terb Time Spent With Patient Time: Total time spent is greater than 50% in coordination of care (as documented) at patient's floor/unit and/or counseling patient: Exam 2 Narrative: abd-nt FHTs reactive [place] 4-7 x per hour
--- NOTE | 2024-10-28 17:08 | PC.NURSE ---
Called Dr. Patricio to report pt contractions. Orders received for terbutaline.
[2024-10-29] VITALS (109 sets, daily range): BP systolic 120–138; BP diastolic 77–88; PULSE 75–105; RESP 18; TEMP 36.6–36.7; O2SAT 96–100
[2024-10-29] MEDS: NIFEdipine 10 MG CAPSULE 20 MG PO ×6 (03:02→23:04)
--- NOTE | 2024-10-29 04:06 | PC.NURSE ---
Called Dr. Patricio, update on contractions 7 in an hour. Orders received to administer 0.25 ml dose of terbutaline.
[2024-10-29] MEDS: TERBUTALINE SULFATE 1 MG/ML VIAL 0.25 MG SUB-Q ×3 (04:19→20:35)
--- NOTE | 2024-10-29 07:40 | P.PNOB_ITS ---
OB - PN: Subj Subjective Date/time seen: 10/29/24 07:40 Interval history: Terb x 3 in last 24 hours. Patient comments: no complaints OB - PN: Obj Data Labs 10/19/24 03:16 10/19/24 03:16 OB - PN A/P Assessment and Plan (1) 34 weeks gestation of : Code(s): Z3A.34 - 34 weeks gestation of Status: Acute Assessment and Plan: IUP 34 2/7 wks Elevated dopplers. Repeat Thurs with EFW (2) labor: Code(s): O60.00 - labor without delivery, unspecified trimester Status: Acute Assessment and Plan: Continue Proc 20 q 4 and prn Terb Time Spent With Patient Time: Total time spent is greater than 50% in coordination of care (as documented) at patient's floor/unit and/or counseling patient: Exam 2 Narrative: abdomen soft, nt
[2024-10-29] MEDS: OMEGA 3 POLYUNSAT FATTY ACIDS 1 GM CAP PO (09:00)
[2024-10-30] VITALS (74 sets, daily range): BP systolic 109–138; BP diastolic 66–86; PULSE 77–125; RESP 15–18; TEMP 36.7–36.8; O2SAT 96–100
[2024-10-30] MEDS: NIFEdipine 10 MG CAPSULE 20 MG PO ×6 (03:01→23:00)
[2024-10-30] MEDS: TERBUTALINE SULFATE 1 MG/ML VIAL 0.25 MG SUB-Q ×4 (06:46→21:49)
--- NOTE | 2024-10-30 08:48 | P.PNOB_ITS ---
OB - PN: Subj Subjective Date/time seen: 10/30/24 08:48 Interval history: Increased terb required over last 2 days but resolves with one dose Good GM Patient comments: no complaints OB - PN: Obj Data Labs 10/19/24 03:16 10/19/24 03:16 OB - PN A/P Assessment and Plan (1) 34 weeks gestation of : Code(s): Z3A.34 - 34 weeks gestation of Status: Acute Assessment and Plan: IUP 34 3/7 Dopplers elevated Recheck dopplers and EFW tomorrow (2) labor: Code(s): O60.00 - labor without delivery, unspecified trimester Status: Acute Assessment and Plan: Continue Proc 20 q 4 and prn terb Time Spent With Patient Time: Total time spent is greater than 50% in coordination of care (as documented) at patient's floor/unit and/or counseling patient: Exam 2 Narrative: abdomen soft nt FHTs reactive [place] 4-6 contractions per hour Cervix last pm by RN 1-2/90/0
[2024-10-30] MEDS: ACETAMINOPHEN 500 MG TABLET 1000 MG PO (11:32)
--- NOTE | 2024-10-30 12:09 | PC.NURSE ---
Pt. requests to stay on monitor until 1500 dt having a zoom meeting from [phone]
--- NOTE | 2024-10-30 15:15 | PC.NURSE ---
Dr. Patricio called and notified pt. was given a 3rd dose of terbutaline for contractions x6 an hour. FHR was tachycardic in the 180's, however during this time pt. 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 Pt. vitals were elevated at this time, BP 138/78 and HR 110, temp 98.4. Pt. expressed she was feeling high anxiety and at 1430 when pt. zoom meeting ended, FHR came back to baseline in the 150's. Pt. is feeling some contractions mildly, others moderately/strongly. Pt. is able to talk through contractions and does not have to deep breathe to get through them. No new orders at this time. If pt. to feel 6 moderate/strong contractions per hour give terbutaline and notify
--- NOTE | 2024-10-30 21:34 | PC.NURSE ---
Called Dr. Patricio, update on pt and contractions 3 to 15 minutes and 9 contractions in the hour. Orders received to administer terbutaline 0.25 mg and monitor for an hour.
[2024-10-31] VITALS (65 sets, daily range): BP systolic 119–140; BP diastolic 72–86; PULSE 75–126; RESP 16; TEMP 36.3–36.8; O2SAT 96–100
[2024-10-31] MEDS: NIFEdipine 10 MG CAPSULE 20 MG PO ×6 (03:28→23:03)
--- NOTE | 2024-10-31 07:45 | P.PNOB_ITS ---
OB - PN: Subj Subjective Date/time seen: 10/31/24 07:45 Interval history: 4 terb required over last 24 hours. States one of times, contractions were very mild. U/s today. Patient comments: no complaints OB - PN: Obj Data Labs 10/19/24 03:16 10/19/24 03:16 OB - PN A/P Assessment and Plan (1) 34 weeks gestation of : Code(s): Z3A.34 - 34 weeks gestation of Status: Acute Assessment and Plan: IUP 34 4/7 wks Elevated dopplers. Repear u/s today for growth and dopplers (2) labor: Code(s): O60.00 - labor without delivery, unspecified trimester Status: Acute Assessment and Plan: Continue Proc 20 q 4 and PRN Terb s/p steroids Time Spent With Patient Time: Total time spent is greater than 50% in coordination of care (as documented) at patient's floor/unit and/or counseling patient: Exam 2 Narrative: abd-soft, nt FHTs reactive [place] 4-6 ctx per hour typical but q 4-6 min yesterday on several runs
[2024-10-31] MEDS: OMEGA 3 POLYUNSAT FATTY ACIDS 1 GM CAP PO (09:50)
--- NOTE | 2024-10-31 09:54 | PC.NURSE ---
Dr. Patricio updated on cord dopplers and weight. Continue plan of care.
[2024-10-31] MEDS: TERBUTALINE SULFATE 1 MG/ML VIAL 0.25 MG SUB-Q ×2 (13:05→17:59)
--- NOTE | 2024-10-31 13:11 | PC.NURSE ---
10/29 and 10/30 pt took her home meds. Medication was not document against the MAR in [employer], however the pt did take the medication.
[2024-11-01] VITALS (66 sets, daily range): BP systolic 116–133; BP diastolic 75–87; PULSE 75–126; RESP 14; TEMP 36.4–36.6; O2SAT 95–99
[2024-11-01] MEDS: NIFEdipine 10 MG CAPSULE 20 MG PO ×6 (03:00→22:57)
[2024-11-01] MEDS: TERBUTALINE SULFATE 1 MG/ML VIAL 0.25 MG SUB-Q ×3 (03:22→18:48)
[2024-11-01] MEDS: OMEGA 3 POLYUNSAT FATTY ACIDS 1 GM CAP PO (11:09)
--- NOTE | 2024-11-01 12:54 | P.PNOB_ITS ---
OB - PN: Subj Subjective Date/time seen: 11/01/24 12:54 Interval history: No change in status. Continues with runs of contractions and resolves with one terb. Patient comments: no complaints OB - PN: Obj Data Labs 10/19/24 03:16 10/19/24 03:16 OB - PN A/P Assessment and Plan (1) 34 weeks gestation of : Code(s): Z3A.34 - 34 weeks gestation of Status: Acute Assessment and Plan: IUP 34 5/ Dopplers remain elevated EFW at 25 % by U MFM graphing with symmetric growth (6% on report per [place]) s/p steroids (2) labor: Code(s): O60.00 - labor without delivery, unspecified trimester Status: Acute Assessment and Plan: Continue Proc 20 q 4 and PRN terb Time Spent With Patient Time: Total time spent is greater than 50% in coordination of care (as documented) at patient's floor/unit and/or counseling patient: Exam 2 Narrative: Abdomen soft, nt FHTs Cat I, in last 24 hours a few variables, one brief run of 3 lates early this am [place] 4-6 contractions per hour with occ increases
[2024-11-02] VITALS (92 sets, daily range): BP systolic 119–158; BP diastolic 72–89; PULSE 68–116; TEMP 36.6–36.8; O2SAT 96–100
[2024-11-02] MEDS: NIFEdipine 10 MG CAPSULE 20 MG PO ×6 (03:00→22:55)
[2024-11-02] MEDS: OMEGA 3 POLYUNSAT FATTY ACIDS 1 GM CAP PO ×2 (06:45→06:46)
--- NOTE | 2024-11-02 07:22 | P.PNOB_ITS ---
OB - PN: Subj Subjective Date/time seen: 11/02/24 07:22 Interval history: No change in status. Continues with runs of contractions and resolves with one terb. Patient comments: no complaints OB - PN: Obj Data Labs 10/19/24 03:16 10/19/24 03:16 OB - PN A/P Assessment and Plan (1) contractions: Code(s): O47.00 - False labor before 37 completed weeks of gestation, unspecified trimester Status: Acute Plan Comments: stable continue present care Time Spent With Patient Time: Total time spent is greater than 50% in coordination of care (as documented) at patient's floor/unit and/or counseling patient: Review of Systems 2 Review of Systems: All systems reviewed & are unremarkable except as noted in HPI. All systems reviewed & are unremarkable except as noted in HPI and below Exam 2 Const: General: cooperative, healthy appearing and comfortable
[2024-11-02] MEDS: TERBUTALINE SULFATE 1 MG/ML VIAL 0.25 MG SUB-Q ×3 (10:00→21:00)
[2024-11-03] VITALS (69 sets, daily range): BP systolic 127–138; BP diastolic 70–88; PULSE 70–116; RESP 16–18; TEMP 36.4–36.8; O2SAT 96–99
[2024-11-03] MEDS: NIFEdipine 10 MG CAPSULE 20 MG PO ×6 (02:54→22:58)
[2024-11-03] MEDS: TERBUTALINE SULFATE 1 MG/ML VIAL 0.25 MG SUB-Q ×2 (05:06→20:07)
--- NOTE | 2024-11-03 06:31 | P.PNOB_ITS ---
OB - PN: Subj Subjective Date/time seen: 11/03/24 06:31 Interval history: No change in status. Continues with runs of contractions and resolves with one terb. Patient comments: no complaints OB - PN: Obj Data Labs 10/19/24 03:16 10/19/24 03:16 OB - PN A/P Assessment and Plan (1) contractions: Code(s): O47.00 - False labor before 37 completed weeks of gestation, unspecified trimester Status: Acute Plan continue present course Time Spent With Patient Time: Total time spent is greater than 50% in coordination of care (as documented) at patient's floor/unit and/or counseling patient: Review of Systems 2 Review of Systems: All systems reviewed & are unremarkable except as noted in HPI. All systems reviewed & are unremarkable except as noted in HPI and below
[2024-11-03] MEDS: OMEGA 3 POLYUNSAT FATTY ACIDS 1 GM CAP PO (09:00)
[2024-11-03] MEDS: ACETAMINOPHEN 500 MG TABLET 1000 MG PO (21:23)
[2024-11-04] VITALS (94 sets, daily range): BP systolic 124–135; BP diastolic 76–81; PULSE 71–102; RESP 16–18; TEMP 36.1–36.9; O2SAT 95–100
[2024-11-04] MEDS: NIFEdipine 10 MG CAPSULE 20 MG PO ×6 (02:56→23:02)
[2024-11-04] MEDS: TERBUTALINE SULFATE 1 MG/ML VIAL 0.25 MG SUB-Q ×2 (03:25→21:11)
[2024-11-04] MEDS: OMEGA 3 POLYUNSAT FATTY ACIDS 1 GM CAP PO (09:00)
--- NOTE | 2024-11-04 09:28 | P.PNOB_ITS ---
OB - PN: Subj Subjective Date/time seen: 11/04/24 09:28 Interval history: No change in status. Continues with runs of contractions and resolves with one terb. Good FM. Patient comments: no complaints OB - PN: Obj Data Labs 10/19/24 03:16 10/19/24 03:16 OB - PN A/P Assessment and Plan (1) 35 weeks gestation of : Code(s): Z3A.35 - 35 weeks gestation of Status: Acute Assessment and Plan: 35 1/7 wk Dopplers elevated EFW at 25 % s/p steroids (2) labor: Code(s): O60.00 - labor without delivery, unspecified trimester Status: Acute Assessment and Plan: Continue Procardia 20 q 4 and prn terb Time Spent With Patient Time: Total time spent is greater than 50% in coordination of care (as documented) at patient's floor/unit and/or counseling patient: Exam 2 Narrative: abdomen soft, nt FHTs cat. I [place] ctx 4-6 per hour
--- NOTE | 2024-11-04 15:14 | PC.NURSE ---
Pt called RN to her room to inform her that she wants to transfer. RN called Dr. Patricio an let her know the pt wishes. MD talked to pt and they discussed waiting til the morning to transfer.
--- NOTE | 2024-11-04 21:02 | PC.NURSE ---
Addendum entered by Lorenza Barclay RN 11/04/24 21:41: Updated Dr. Patricio pain 7 out of 10. Original Note: Called Dr. Patricio, update on pt and 10 contractions in the hour. Orders received to administer terbutaline 0.25 mg and monitor for an hour.
[2024-11-04] MEDS: ACETAMINOPHEN 500 MG TABLET 1000 MG PO (21:15)
--- NOTE | 2024-11-04 22:25 | PC.NURSE ---
Called Dr. Patricio, update on pt, two contractions in an hour, variable decelerations, and initiation of IV access. Orders received to monitor for one hour.
[2024-11-04 22:51] LABS: Basophils Absolute Auto 0.1 K/mm3 (0.0-0.1); Basophils Percent Auto 0.5 % (0.2-1.2); Eosinophils Absolute Auto 0.3 K/mm3 (0-0.3); Eosinophils Percent Auto 2.3 % (0-4.4); Hematocrit 36.7 % (37.0-47.0); Hemoglobin 12.9 g/dL (12.0-15.0); Immature Granulocyte Absolute 0.17 K/mm3 (0.00-0.031); Immature Granulocyte Percent A 1.4 % (0-0.5); Lymphocytes Absolute Auto 3.26 K/mm3 (0.9-3.2); Lymphocytes Percent Auto 26.5 % (18.3-44.2); Mean Corpuscular HGB Conc 35.1 g/dl (32-36); Mean Corpuscular Hemoglobin 30.4 pg (26-34); Mean Corpuscular Volume 86.6 fl (80-100); Mean Platelet Volume 9.4 fl (7.4-10.4); Monocytes Absolute Auto 0.8 K/mm3 (0.1-0.6); Monocytes Percent Auto 6.6 % (2.6-8.5); Neutrophils Absolute Auto 7.7 K/mm3 (1.3-6.7); Neutrophils Percent Auto 62.7 % (45.5-73.1); Platelet Count Result 201 k/mm3 (150-375); Red Blood Count 4.24 M/mm3 (4.2-5.4); Red Cell Distribution Width 11.8 % (11.5-14.5); White Blood Count 12.3 K/mm3 (4.5-10.0)
--- NOTE | 2024-11-04 22:52 | PC.NURSE ---
Called Dr. Patricio, update on pt, contractions, variable decelerations, and pt request to transfer, provider coming in to transfer pt.
--- NOTE | 2024-11-04 23:12 | P.PNOB_ITS ---
OB - PN: Subj Subjective Date/time seen: 11/04/24 23:12 Interval history: No change in status. Continues with runs of contractions and resolves with one terb. Good FM. Called for usual dose of Terb which did work. Fetus with a few variable decelerations brief in nature. Cat I otherwise. Patient requesting transfer. OB - PN: Obj Data Labs 11/04/24 22:34 10/19/24 03:16 Labs: Laboratory Results - last 24 hr 11/04/24 22:34 WBC 12.3 H RBC 4.24 Hgb 12.9 Hct 36.7 L MCV 86.6 MCH 30.4 MCHC 35.1 RDW 11.8 Plt Count 201 MPV 9.4 Immature Gran % (Auto) 1.4 H Neut % (Auto) 62.7 Lymph % (Auto) 26.5 [place] % (Auto) 6.6 Eos % (Auto) 2.3 Baso % (Auto) 0.5 Lymph # (Auto) 3.26 H [place] # (Auto) 0.8 H Eos # (Auto) 0.3 Baso # (Auto) 0.1 Abs Immat Gran (auto) 0.17 H Absolute Neuts (auto) 7.7 H Absolute Nucleated RBC 0.000 Nucleated RBC % 0.0 OB - PN A/P Assessment and Plan (1) 35 weeks gestation of : Code(s): Z3A.35 - 35 weeks gestation of Status: Acute Assessment and Plan: IUP 35 1/7 weeks Elevated dopplers s/p steroids EFW @ 25 % (2) labor: Code(s): O60.00 - labor without delivery, unspecified trimester Status: Acute Assessment and Plan: On procardia 20 mg q 4 and PRN terbutaline. Requesting transfer to [facility]. Transfer arranged. Time Spent With Patient Time: Total time spent is greater than 50% in coordination of care (as documented) at patient's floor/unit and/or counseling patient: Exam 2 Narrative: Abdomen soft, nt FHTs reactive with occ variables [place] with occ contractions Const: General: anxious
--- NOTE | 2024-11-04 23:30 | P.DS_ITS ---
DS: Admitting Diagnosis Discharge Date 11/05/24 Admitting Diagnosis IUP 32 wks labor DS: Discharge Diagnosis Discharge Diagnosis (1) 35 weeks gestation of : Code(s): Z3A.35 - 35 weeks gestation of Status: Acute Assessment and Plan: 35 1/7 weeks Elevated dopplers Requesting transfer to [facility] (2) labor: Code(s): O60.00 - labor without delivery, unspecified trimester Status: Acute Assessment and Plan: Managed with Procardia 20 mg q 4 and PRN Terb. Cervix 1-2/90/0 per RN DS: Summary Hospital Course Hospital Course: Managed with Procardia 20 mg q 4 and PRN terb 1-3 x per day Elevated dopplers checked weekly. Occ. random decelerations. s/p steroids Status at Discharge Functional status at discharge: independent ambulation Overall status at discharge: patient is progressing back to baseline Time Spent with Patient Time attestation: Total time spent providing and/or coordinating discharge services: DS: Data Data Completed and Pending Labs on day of discharge: Labs from last 24 hours 11/04/24 22:34 WBC 12.3 H RBC 4.24 Hgb 12.9 Hct 36.7 L MCV 86.6 MCH 30.4 MCHC 35.1 RDW 11.8 Plt Count 201 MPV 9.4 Immature Gran % (Auto) 1.4 H Neut % (Auto) 62.7 Lymph % (Auto) 26.5 [place] % (Auto) 6.6 Eos % (Auto) 2.3 Baso % (Auto) 0.5 Lymph # (Auto) 3.26 H [place] # (Auto) 0.8 H Eos # (Auto) 0.3 Baso # (Auto) 0.1 Abs Immat Gran (auto) 0.17 H Absolute Neuts (auto) 7.7 H Absolute Nucleated RBC 0.000 Nucleated RBC % 0.0 Discharge Plan Discharge Attending physician on discharge: Pooja Patricio Discharging Clinician: Pooja Patricio Anticipated Discharge Date/Time: 11/04/24 23:33 Patient Disposition: Other Activity: pelvic rest Diet: regular Patient Instructions: Antibiotic Form Patient Language: Gu[place] Stand Alone Forms: General Discharge Information Discharge Medications: No Action Gummies 400 mcg-35 mg- 25 mg-5 mg tablet,chewable 2 tablet PO DAILY Patient Comments: Pt takes an iron free gummie omega-3 fatty acids-fish oil [Fish Oil] 360-1,200 mg capsule 1 cap PO DAILY choline 250 mg tablet 250 mg PO DAILY nifedipine 10 mg capsule 20 mg PO Q4H Date of admission: 10/18/24 05:40 Primary Care Provider: UNKNOWN,DOCTOR Admitting Provider: Pooja Patricio Attending physician on admission: Pooja Patricio Condition: Stable Care Plan Goals: Transfer to [facility]
--- NOTE | 2024-11-04 23:32 | PC.NURSE ---
Report given to Colleen Morales RN at [facility].
--- NOTE | 2024-11-04 23:51 | PC.NURSE ---
Called [facility] to request transport to [facility].
[2024-11-05] VITALS (41 sets, daily range): PULSE 72–107; O2SAT 98–100
[2024-11-05] MEDS: NIFEdipine 10 MG CAPSULE 20 MG PO (02:58)
--- NOTE | 2024-11-05 03:33 | PC.NURSE ---
Pt transferred to [facility] via [facility].
--- NOTE | 2024-11-05 03:45 | PC.NURSE ---
Updated report given to Colleen Morales RN at [facility].
== END 2024-11-04 23:34 | disposition short-term general hospital (02) ==
PROVIDERS: Admitting Provider Obstetrics & Gynecology Gynecology; Visit Provider Obstetrics & Gynecology Gynecology
DX: O60.03 Preterm labor without delivery, third trimester (principal); Z3A.32 32 weeks gestation of pregnancy; Z11.4 Encounter for screening for human immunodeficiency virus [HIV]; O36.8330 Maternal care for abnormalities of the fetal heart rate or rhythm, third trimester, not applicable or unspecified; O43.193 Other malformation of placenta, third trimester
CPT/HCPCS: 36415; 59025; 76815; 76816; 76820; 80053; 85025; 86593; 86703; 86850; 86900; 86901; 96372; A9270; G0378; G0379; G0432; J0702; J3105

== ENCOUNTER 2024-12-09 14:10 | Outpatient (CLI) | payer BC, OTHER, SELFPAY ==
--- OUTSIDE RECORDS SUMMARY | 2024-12-09 14:13 | XMS_ITS ---
Author Organization [facility] Source Produ ction (ClinicalSummary Clone) Address Unknown Care Team Providers Care Banner Painter Name Role Phone Unavailable Primary Care Physician Unavailab le Results * [UNITY] ANEUPLOIDY NIPT Performed by: Penneo Component Value Range Date Fraction 9.0% 06/04/2024 05 :45 am UTC Sex Chromosome Aneuploidy NOT DETECTED 05:45 am UTC Monosomy X LOW RISK <1 in 10,000 2024 05:45 am UTC Trisomy 13 LOW RISK <1 in 10,000 2024 05:45 am UTC Trisomy 18 LOW RISK <1 in 10,000 2024 05:45 am UTC Trisomy 21 LOW RISK <1 in 10,000 2024 05:45 am UTC Sex FEMALE 06/04/2024 05:4 5 am UTC Gestation [place] 06/04/19 05:45 am [place] For detailed report, see PDF See PDF 06/04/2024 05:45 am UTC 06/04/2024 05:4 5 am [place] Social History Observation Value Start Date End Date
--- OUTSIDE RECORDS SUMMARY | 2024-12-09 14:13 | XMS_ITS | Clinical Summary ---
Author Organization [facility] Address [address] [place] [address] Care Team Providers Care Printed Circuit Board Panels Trimmer Name Role Phone Unavailable Primary Care Provider [...] Encounters Date Type Department Care Team Description 11/27/2024 External Device Data [facility] ABSTRACTION Provider, Abstract 11/26/2024 External Device Data [facility] ABSTRACTION Provider, Abstract 11/12/2024 External Device Data [facility] ABSTRACTION Provider, Abstract from Last 3 Months Family History Medical [...] on file Legal Sex Female 8:46 AM FACILITY MANAGER Gender Identity Not on file Sexual Orientation Not on file Last Filed Vital Signs Vital Sign Reading Time Taken Comments Blood Pressure 111/74 07/15/2024 3:02 PM FACILITY MANAGER Pulse 95 07/15/2024 3:02 PM FACILITY MANAGER Temperature 36.7 C (98.1 F) 07/15/2024 3:02 PM FACILITY MANAGER Respiratory Rate 16 07/15/2024 3:02 PM FACILITY MANAGER Oxygen Saturation 96% 07/15/2024 3:02 PM FACILITY MANAGER Inhaled Oxygen Concentration - - Weight 65.9 kg (145 lb 3.2 oz) 07/15/2024 3:02 P M FACILITY MANAGER Height 170.2 cm (5' 7) 07/15/2024 3:02 PM FACILITY MANAGER Body Mass Index 22.74 07/15/2024 3:02 PM FACILITY MANAGER Plan of Treatment Upcoming Encounters Date Type Department Care Team (Late st Contact Info) Description 12/11/2024 11:15 AM CDT Office Visit [facility] Oncology and Hematology [facility] [address] [place] [phone] Cliff Amin MD [address] [place] [phone] 02/03/2025 11:45 AM CDT Office Visit [facility] Oncology and Hematology [facility] [address] [place] [phone] Cliff Amin MD [address] [place] [phone] Health Maintenance Due Date Last Done Comments HPV VACCINES (1 - 3-dose series) 01/09/2008 DTAP/TDAP/TD VACCINES (1 - Tdap) 01/09/2012 HEPATITIS B VACCINES (1 of 3 - 19+ 3-dose series) 12/14 HPV/Cotest (21-29) 2014 CERVICAL CANCER SCREENING 2023 HPV/Cotest (30-65) 2023 PAP SMEAR 2023 Preventative Visit- Commercial 05/15/2024 INFLUENZA VACCINE (#1) 2024 Insurance [facility] BLUE ACCESS/TRUE BLUE PPO
--- OUTSIDE RECORDS SUMMARY | 2024-12-09 14:13 | XMS_ITS ---
Author Organization [facility] Source Produ ction (ClinicalSummary Clone) Address Unknown Care Team Providers Care Harnessmaker Apprentice Name Role Phone Unavailable Primary Care Physician Unavailab le Results * [UNITY] CARRIER SCREEN Performed by: [facility] Component Value Range Date Sickle Cell Disease/Beta-Thalassemia/Hemo globinopathies carrier screen NEGATIVE 06/09/2024 09:09 am [facility] Alpha-Thalassemia carrier screen NEGATIVE 06/09/2024 09:09 am [facility] Cystic Fibrosis carrier screen NEGATIVE 06/09/2024 09:09 am [facility] Spinal Muscular Atrophy carrier screen NEGATIVE 2 SMN1 copies, SNP not present 06/09/2024 09:09 am [facility] For detailed report, see PDF See PDF 06/09/2024 09:09 am [facility] 06/09/2024 09:0 9 am [facility] Social History Observation Value Start Date End Date
--- OUTSIDE RECORDS SUMMARY | 2024-12-09 14:13 | XMS_ITS | Clinical Summary ---
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 This disclosure is being madepursuant to the Care Everywhere program and may not contain all information available regarding this patient. Last updated 18.[facility] Allergies No known active allergies Medications * Be aware that medications may not be up to date on this document. Alwaysverify current medications with the patient. Vit-Fe Fumarate-FA ( vitamin) 28-0.8 MG tablet Take 1 (one) tablet by mouth once daily Active [place]-3 Fatty Acids (fish oil) 500 MG capsule Take 1,200 (one thousand two hundred) mg by mouth once daily Active CHOLINE PO Take 250 mg by mouth once daily Active docusate sodium (Colace) 100 MG capsule Take 1 (one) capsule by mouth once daily as needed for constipation 30 capsule 3 11/09/2024 11:04 AM CDT 11/10/19 25 Active ibuprofen (Motrin) 600 MG tablet Take 1 (one) tablet by mouth every 6 hours as needed for Pain 30 tablet 1 11/09/2024 11:04 AM CDT 11/10/19 25 Active polyethylene glycol 3350 (Miralax) 17 GM/SCOOP powder Mix and drink 17 (seventeen) g by mouth once daily as needed for constipation 510 g 1 11/09/2024 11:04 AM CDT 11/10/19 25 Active Additional Information Patient not taking.Reason: Provider adjusted (not needed), Informant: Patient, Reported on 11/14/2024 acetaminophen (Tylenol) 500 MG tablet Take 2 (two) tablets by mouth every 6 hours Maximum allowable Acetaminophen amount = 4 Grams (4000 mg) / 24 hours. 60 tablet 11/09/2024 11:04 AM CDT 11/10/19 Active Additional Information Patient not taking.Reported on 11/14/2024 NIFEdipine CR osmotic 24hr (Procardia-XL) 30 MG tablet Take 1 (one) tablet by mouth once daily 30 tablet 2 11/09/2024 11:04 AM CDT 11/10/19 Active Additional Information Patient not taking.Reason: Other (stopped on 11/18 due to low blood pressure.), Informant: Patient, Reported on 11/28/2024 ferrous sulfate 325 (65 FE) MG tablet Take 1 (one) tablet by mouth once daily 30 tablet 1 11/09/2024 11:04 AM CDT 11/10/19 25 025 Discontin ued(List Clean-Up) plus iron (Natatab) 29-1 MG tablet Take 1 (one) tablet by mouth once daily 90 tablet 4 11/09/2024 11:04 AM CDT 11/10/19 25 025 Discontin ued(List Clean-Up) Active Problems Problem Noted Date Diagnosed Date Vaginal discharge 11/14/2024 Uterine contractions 11/05/2024 Encounters Date Type Department Care Team Description 11/28/2024 8:39 AM CDT - 11/28/2024 11:59 PM CDT Hospital [facility] [address], [address] [place] [phone] Tay Rivera MD Discharge Disposition: Home or Self Care 11/28/2024 Travel 11/18/2024 Telephone [facility] [address], [address] [place] [phone] Aaron, Wendy Treviño RN Care Management Other 11/14/2024 12:54 PM CDT - 11/14/2024 3:45 PM CDT Hospital Encounter [facility] [address] [place] [address] Tuan Woodward MD Discharge Disposition: Home or Self Care 11/14/2024 9:37 AM CDT - 11/14/2024 12:53 PM CDT Hospital Encounter [facility] [address], [address] [place] [address] Tay Rivera MD Discharge Disposition: Home or Self Care 11/14/2024 9:00 AM CDT - 11/14/2024 9:36 AM CDT Hospital Encounter [facility] at [address], [address] [place] [address] Tay Rivera MD Discharge Disposition: Home or Self Care 11/14/2024 Travel 11/13/2024 Telephone [facility] at [address], [address] [place] [address] Sherrell Kemp Appointment 11/12/2024 Telephone [facility] at [address], [address] [place] [address] Aaron, Wendy Treviño RN Appointment 11/11/2024 2:57 PM CDT - 11/13/2024 12:33 PM CDT Hospital Encounter [facility] 5E ANTEPARTUM/MOTHER BABY [address] [place] [address] Tuan Woodward MD Discharge Disposition: Home or Self Care 11/11/2024 Telephone [facility] [address] [place] [address] [address] [place] [phone] Ethan Cho MD Care 11/11/2024 Travel 11/11/2024 Telephone [facility] MATERNAL/ EVALUATION UNIT [facility]. [address] [place] [address] Savi Ayoub RN Hospital Follow-up 11/07/2024 1:39 AM CDT Anesthesia Event [facility] [address] [place] [address] Hua Bowman MD Brock, Tonya Marie, APRN-DAMARIS 11/07/2024 Telephone [facility] MATERNAL/ EVALUATION UNIT [address] [place] [address]. [address] [place] [address] Savi Ayoub, RN Hospitalization 11/06/2024 Telephone [facility] MATERNAL/ EVALUATION UNIT [address] [place] [address]. [address] [place] [address] Savi Ayoub RN Hospitalization; Hospital Follow-up 11/05/2024 4:12 AM CDT - 11/09/2024 1:50 PM CDT Hospital Encounter [facility] 6W MOTHER/BABY [address] [place] [address] Sonu Marin MD [facility] Discharge Disposition: Home or Self Care 11/05/2024 Travel from Last 3 Months Immunizations Immunization Administration Dates Next Due MMR 11/08/2024(Deferred: See Comment s) TDAP (7yrs+) 11/08/2024() Family History Medical History Relation Name Comments ITP Father Relation Name Status Comments Father Social History Tobacco Use Types Packs/Day Years Used Date Smoking Tobacco: Never Smokeless Tobacco: Never Tobacco Cessation:Counseling Given: Not Answered Alcohol Use Standard Drinks/Week Comments Not Currently 0 (1 standard drink = 0.6 oz pur e alcohol) Overall Financial Resource Strain (CARDIA) Answe r Date Recorded How hard is it for you to pa y for the very basics like food, housing, medical care, and heating? Not hard at all 11/14/2024 [facility] [place] of Occupat ional Health - Occupational Stress Questionnaire Answer Date Recorded Do you feel stress - tense, restless, nervous, or anxious, or unable to sleep at night because your mind is troubled all the time - these days? Not at all 11/14/2024 Hunger Vital Sign Answer Date Recorded Within the past 12 months, y ou worried that your food would run out before you got the money to buy more. Never true 11/15/19 25 Within the past 12 months, t he food you bought just didn't last and you didn't have money to get more. Never true 11/14/2024 PRAPARE - Transportation Answer Date Re corded In the past 12 months, has l ack of transportation kept you from medical appointments or from getting medications? No 07/2024 In the past 12 months, has l ack of transportation kept you from meetings, work, or from getting things needed for daily living? No 11/14/2024 [place] Depression Scale Answer Date Recorded [place] Depression Scale Total 6 11/11/2024 The thought of harming myself has occurred to me . Never 11/11/2024 Housing Stability Vital Sign Answer Keegan e Recorded In the last 12 months, was t here a time when you were not able to pay the mortgage or rent on time? No 11/14/2024 In the past 12 months, how m any times have you moved where you were living? 0 11/14/2024 At any time in the past 12 m onths, were you homeless or living in a detention (including now)? No 11/14/2024 Comments No Sex and Gender Information Value Date Recorded Sex Assigned at Female 11/11/2024 5:45 PM CDT Legal Sex Female 11:26 PM CDT Gender Identity Not on file Sexual Orientation Not on file Last Filed Vital Signs Vital Sign Reading Time Taken Comments Blood Pressure 108/72 11/28/2024 9:07 AM CDT Pulse 81 11/28/2024 9:07 AM CDT Temperature 36.9 C (98.5 F) 11/14/2024 1:02 PM CDT Respiratory Rate 16 11/28/2024 9:07 AM CDT Oxygen Saturation 97% 11/28/2024 9:07 AM CDT Inhaled Oxygen Concentration - - Weight 66 kg (145 lb 6.4 oz) 11/28/2024 9:07 AM CDT Height 170.2 cm (5' 7) 11/28/2024 9:07 AM CDT Body Mass Index 22.77 11/28/2024 9:07 AM CDT Plan of Treatment Upcoming Encounters Date Type Department Care Team (Late st Contact Info) Description 12/13/2024 9:30 AM CDT Appointment [facility] Health Imaging Services - Ultrasound [address] [place] [address] Tay Rivera MD [address] [place] [address] 12/17/2024 10:30 AM CDT Appointment [facility] [place] [address], [address] [place] [address] Tay Rivera MD [address] [place] [address] Health Maintenance Due Date Last Done Comments HIV SCREENING 01/09/2008 DTAP/TDAP/TD VACCINES (1 - Tdap) 01/09/2012 HEPATITIS B VACCINE (1 of 3 - 19+ 3-dose series) 01/09/2012 PAP SMEAR 2014 HPV VACCINE (1 - 3-dose SCDM series) 01/09/2020 COVID-19 VACCINE ( - 2023-2 5 season) 2024 INFLUENZA VACCINE (#1) 2025 ZOSTER VACCINE (1 of 2) 2043 DEPRESSION SCREENING Completed 11/11/2024 HEPATITIS C SCREENING Completed 11/11/2024 HIB VACCINE Aged Out No longer eligi ble based on patient's age to complete this topic MENINGOCOCCAL (Group B) VACC INE SHARED DECISION-MAKING Aged Out No longer eligibl e based on patient's age to complete this topic MENINGOCOCCAL GROUPS A/C/Y/W VACCINE Aged Out No longer eligible b ased on patient's age to complete this topic PNEUMOCOCCAL VACCINE Aged Out No long er eligible based on patient's age to complete this topic Procedures Procedure Name Priority Date/Time Associated Diagnosis Comments CARDIAC EKG ORDER 11/14/2024 6:3 9 PM CDT URINALYSIS REFLEX MICROSCOPIC REFLEX CULTURE Routine 11/14/2024 11:59 AM CDT Vaginal odor CULTURE URINE Routine 11/14/2024 11:59 AM CDT Vaginal odor BACTERIAL VAGINOSIS + YEAST SMEAR Routine 11/14/2024 11:59 AM CDT Vaginal odor COMPREHENSIVE METABOLIC PANEL AM Draw 11/13/2024 2:38 AM CDT Transaminitis CBC W AUTO DIFFERENTIAL Routine 11/12/2024 1:51 PM CDT COMPREHENSIVE METABOLIC PANEL Routine 11/12/2024 1:51 PM CDT COMPREHENSIVE METABOLIC PANEL AM Draw 11/12/2024 6:58 AM CDT CBC W AUTO DIFFERENTIAL AM Draw 11/12/2024 6:58 AM CDT TYPE + SCREEN PANEL STAT 11/11/2024 7 :19 PM CDT IMAGING/RADIOLOGY/XRA Y RESULTS ORDER 11/11/2024 7:06 PM CDT HEPATITIS SCREEN ACUTE STAT 11/11/2024 5:38 PM CDT Transaminitis US ABDOMEN LIMITED STAT 11/11/2024 5: 04 PM CDT Transaminitis FERRITIN STAT 11/11/2024 3:57 PM CDT Transaminitis CBC W AUTO DIFFERENTIAL STAT 11/11/2024 3:57 PM CDT Chest tightness COMPREHENSIVE METABOLIC PANEL STAT 11/11/2024 3:57 PM CDT Chest tightness DIFFERENTIAL MANUAL AM Draw 11/08/2024 5 :26 AM CDT CBC W AUTO DIFFERENTIAL AM Draw 11/08/2024 5:26 AM CDT PATHOLOGY TISSUE EXAM (STL) Routine 11/07/2024 3:06 AM CDT Pre-eclampsia in third trimester (HCC) BLOOD GASES CORD JACKY (ISTAT) Routine 11/07/2024 2:52 AM CDT BLOOD GASES CORD ART (ISTAT) Routine 11/07/2024 2:48 AM CDT NEURAXIAL BLOCK Routine 11/07/2024 1:44 AM CDT COMPREHENSIVE METABOLIC PANEL STAT 11/06/2024 11:47 PM CDT SYPHILIS ANTIBODY CASCADING REFLEX STAT 11/06/2024 11:47 PM CDT CBC W AUTO DIFFERENTIAL STAT 11/06/2024 11:47 PM CDT SYPHILIS ANTIBODY CASCADING REFLEX STAT 11/06/2024 7:54 PM CDT CBC W AUTO DIFFERENTIAL STAT 11/06/2024 7:54 PM CDT PROTEIN CREATININE RATIO URINE RANDOM PNL Routine 11/06/2024 4:19 PM CDT COMPREHENSIVE METABOLIC PANEL Routine 11/06/2024 4:03 PM CDT CBC W AUTO DIFFERENTIAL Routine 11/06/2024 4:03 PM CDT SONOGRAM - COMPLETE Routine 11/05/2024 7 :47 AM CDT CULTURE STREP B STAT 11/05/2024 5:15 AM CDT Uterine contractions (HCC) TYPE + SCREEN PANEL STAT 11/05/2024 4 :42 AM CDT SYPHILIS ANTIBODY CASCADING REFLEX STAT 11/05/2024 4:42 AM CDT Uterine contractions (HCC) CBC W AUTO DIFFERENTIAL STAT 11/05/2024 4:42 AM CDT Uterine contractions (HCC) from Last 3 Months Results * CARDIAC EKG ORDER (11/14/2024 6:39 PM CDT) Narrative 11/14/2024 6:39 PM CDT Ordered by an unspecified provider. us Scanned Document CARDIAC SERVICES ORDERABLES Fin al Result * (ABNORMAL) BACTERIAL VAGINOSIS + YEAST SMEAR (11/14/2024 11:59 AM CDT) Clue Cells No Clue Cells Seen No Clue Cells Seen 11/14/2024 9:41 PM CDT [facility] Yeast No Yeast Seen No Yeast Seen 11/15/19 9:41 PM CDT [facility]CRO[facility] Inocencia Score Inocencia Score 4-6: Consistent with transition from normal vaginal lynn(A) Inocencia Score 0-3: Consistent with normal vaginal lynn 11/14/2024 9:41 PM CDT [facility]CRO[facility]OLOGY Microbiology ENTIRE VAGINA / Unknown Collection / Unknown 11/14/2024 11:59 AM CDT 11/14/2024 3:09 PM CDT Tay Rivera MD LAB - MICROBIOLOGY ORDERABLES Fi nal Result [facility]CRO[facility] [address] [place] [address], [facility] [phone] * (ABNORMAL) URINALYSIS REFLEX MICROSCOPIC REFLEX CULTURE (11/14/2024 11:59 AM CDT) Color UA Yellow Yellow, Straw 11/14/2024 3:17 PM CDT [facility] Clarity UA Clear Clear 11/14/2024 3:17 PM CDT [facility] Glucose UA Normal Normal 11/14/2024 3:17 PM CDT [facility] Bilirubin UA Negative Negative 11/14/2024 3:17 PM CDT [facility] Ketone UA Negative Negative 11/14/2024 3:17 PM CDT [facility] Specific [place] UA 1.016 1.005 - 1.030 11/14/2024 3:17 PM CDT [facility] Blood UA 3+(A) Negative 11/14/2024 3:17 PM CDT [facility] pH UA 6.0 5.0 - 8.0 11/14/2024 3:17 PM CDT [facility] Protein UA Negative Negative 11/14/2024 3:17 PM CDT [facility] Urobilinogen UA Normal Normal mg/dL 11/14/2024 3:17 PM CDT [facility] Nitrite UA Negative Negative 11/14/2024 3:17 PM CDT [facility] Leukocyte Esterase UA 25 MARCO/uL(A) Negative 11/14/2024 3:17 PM CDT [facility] RBC UA 11-20(A) 0 - 5 # /hpf 11/14/2024 3:17 PM CDT [facility] WBC UA 6-10(A) 0 - 5 # /hpf 11/14/2024 3:17 PM CDT [facility] Bacteria UA None Seen None Seen 11/14/2024 3:17 PM CDT [facility] Squamous Epithelial Cells 0-2 0 - 5 /hpf 11/14/2024 3:17 PM CDT [facility] Mucus UA 1+ /LPF 11/14/2024 3:17 PM CDT [facility] Reflex Status Culture to follow 11/14/2024 3:17 PM CDT [facility] Urine URINE SPECIMEN OBTAINED BY CLEAN CATCH PROCEDURE / Unknown Collection / Unknown 11/14/2024 11:59 AM CDT 11/14/2024 3:09 PM CDT Narrative [facility] - 11/14/2024 3:17 PM CDT us Tay Rivera MD LAB - URINALYSIS ORDERABLES Catherine l Result Performing Organization Address City/[facility] Co de Phone Number [facility] [address] [place] [address] [phone] * CULTURE URINE (11/14/2024 11:59 AM CDT) Pathologist [facility] Culture Urine 10,000-50,000 CFU/mL urogenital lynn SULLY 11/15/2024 11:17 PM CDT [facility] MICRO[facility] Urine URINE SPECIMEN OBTAINED BY CLEAN CATCH PROCEDURE / Unknown Collection / Unknown 11/14/2024 11:59 AM CDT 11/14/2024 3:09 PM CDT us Tay Rivera MD LAB - MICROBIOLOGY ORDERABLES Fi nal Result [facility] MICROBIOLOGY [address] [place] [address], [facility] [phone] * (ABNORMAL) COMPREHENSIVE METABOLIC PANEL (11/13/2024 2:38 AM CDT) Only the most recent of6 resultswithin the time period is included. Glucose 87 70 - 99 mg/dL 11/13/2024 3:17 AM CDT [facility] Sodium 139 136 - 145 mmol/L 11/13/2024 3:17 AM CDT [facility] Potassium 4.4 3.5 - 5.1 mmol/L 11/13/2024 3:17 AM CDT [facility] Chloride 108(H) 98 - 107 mmol/L 11/13/2024 3:17 AM CDT [facility] CO2 27 22 - 29 mmol/L 11/13/2024 3:17 AM CDT [facility] Calcium 8.9 8.4 - 10.4 mg/dL 11/13/2024 3:17 AM CDT [facility] Anion Gap 4(L) 6 - 16 mmol/L 11/13/2024 3:17 AM CDT [facility] BUN 17 5.3 - 18.7 mg/dL 11/13/2024 3:17 AM CDT [facility] Creatinine 0.70 0.57 - 1.11 mg/dL 11/13/2024 3:17 AM CDT [facility] Alkaline Phosphatase 114 40 - 150 U/L 11/13/2024 3:17 AM CDT [facility] ALT 229(H) 6 - 57 U/L 11/13/2024 3:17 AM CDT [facility] AST 95(H) 10 - 48 U/L 11/13/2024 3:17 AM CDT [facility] Protein Total 6.3(L) 6.4 - 8.3 gm/dL 11/13/2024 3:17 AM CDT [facility] Albumin 3.0(L) 3.1 - 4.5 gm/dL 11/13/2024 3:17 AM CDT [facility] Bilirubin Total 0.1(L) 0.2 - 1.2 mg/dL 11/13/2024 3:17 AM CDT [facility] eGFR by CKD-EPI >90 >=90 mL/min/1.7 3 m2 11/13/2024 3:17 AM CDT [facility] Blood BLOOD SPECIMEN / Unknown Lab Venipuncture / Unknown 11/13/2024 2:38 AM CDT 11/13/2024 2:50 AM CDT us Tuan Woodward MD LAB - CHEMISTRY ORDERABLES Catherine gloria Result [facility] [address] [place] [address] * (ABNORMAL) CBC W AUTO DIFFERENTIAL (11/12/2024 1:51 PM CDT) Only the most recent of8 resultswithin the time period is included. WBC 10.3 4.0 - 10.7 x10E9/L 11/12/2024 2:01 PM CDT [facility] RBC Count 4.06 3.90 - 5.20 x10E12/L 11/12/2024 2:01 PM CDT [facility] Hemoglobin 12.7 11.9 - 15.8 g/dL 11/12/2024 2:01 PM CDT [facility] Hematocrit 37.0 34.8 - 46.1 % 11/12/2024 2:01 PM CDT [facility] MCV 91.1 80.0 - 98.0 fL 11/12/2024 2:01 PM CDT [facility] MCH 31.3 26.7 - 33.6 pg 11/12/2024 2:01 PM CDT [facility] MCHC 34.3 31.7 - 36.3 g/dL 11/12/2024 2:01 PM CDT [facility] RDW-CV 12.3 11.3 - 14.8 % 11/12/2024 2:01 PM CDT [facility] Platelet Count 281 150 - 420 x10E9/L 11/12/2024 2:01 PM CDT [facility] MPV 8.9 7.8 - 11.4 fL 11/12/2024 2:01 PM CDT [facility] Neutrophil % 64.6 41.0 - 74.0 % 11/12/2024 2:01 PM CDT [facility] Lymphocyte % 25.4 17.0 - 47.0 % 11/12/2024 2:01 PM CDT [facility] Monocyte % 5.5 3.0 - 11.0 % 11/12/2024 2:01 PM CDT [facility] Eosinophil % 2.8 0.0 - 7.0 % 11/12/2024 2:01 PM CDT [facility] Basophil % 0.3 0.0 - 1.6 % 11/12/2024 2:01 PM T [facility] Immature Granulocytes % 1.4(H) 0.0 - 1.0 % 11/12/2024 2:01 PM CDT [facility] Neutrophil Absolute 6.65 1.60 - 7.50 x10E9/L 11/12/2024 2:01 PM CDT [facility] Lymphocyte Absolute 2.62 1.00 - 4.40 x10E9/L 11/12/2024 2:01 PM CDT [facility] Monocyte Absolute 0.57 0.15 - 1.00 x10E9/L 11/12/2024 2:01 PM CDT [facility] Eosinophil Absolute 0.29 0.00 - 0.60 x10E9/L 11/12/2024 2:01 PM CDT [facility] Basophil Absolute 0.03 0.00 - 0.13 x10E9/L 11/12/2024 2:01 PM [facility] Blood BLOOD SPECIMEN / Unknown Lab Venipuncture / Unknown 11/12/2024 1:51 PM CDT 11/12/2024 1:56 PM CDT us Tuan Woodward MD LAB - HEMATOLOGY ORDERABLES Fin al Result [facility] [address] [place] [address] * TYPE + SCREEN PANEL (11/11/2024 7:19 PM CDT) Only the most recent of2 resultswithin the time period is included. ABO Rh A POS 11/11/2024 8:03 PM CDT [facility] Comment:History checked. Antibody Screen NEG 06/30/202 5 8:03 PM CDT [facility] Blood Bank BLOOD SPECIMEN / Unknown Venipuncture / Unknown 11/11/2024 7:19 PM CDT 11/11/2024 7:29 PM CDT Tuan Woodward MD LAB - BLOOD BANK ORDERABLES Fin al Result Performing Organization Address [facility] Co de Phone Number [facility] [address] [place] [address] * IMAGING/RADIOLOGY/XRAY RESULTS ORDER (11/11/2024 7:06 PM CDT) Anatomical Region Laterality Modality Other Narrative 11/11/2024 7:06 PM CDT Ordered by an unspecified provider. us Scanned Document IMAGING Final Result * HEPATITIS SCREEN ACUTE (11/11/2024 5:38 PM CDT) HAV Antibody IgM Non Reactive Non Reactive 11/11/2024 6:23 PM CDT [facility] HBsAg Non Reactive Non Reactive 11/11/2024 6:23 PM CDT [facility] HBc Antibody IgM Non Reactive Non Reactive 11/11/2024 6:23 PM CDT [facility] HCV Antibody Screen Non Reactive Non Reactive 11/11/2024 6:23 PM CDT [facility] Blood BLOOD SPECIMEN / Unknown Venipuncture / Unknown 11/11/2024 5:38 PM CDT 11/11/2024 5:43 PM CDT Narrative [facility] - 11/11/2024 6:23 PM CDT Non Reactive - Antibodies to Hepatitis C virus (HCV) were not detected, result does not exclude early acute HCV infection. Tuan Woodward MD LAB - CHEMISTRY ORDERABLES Catherine l Result Performing Organization Address City/[facility]/ZIP Co de Phone Number [facility] [address] [place] [address] * US Abdomen Limited (11/11/2024 5:04 PM CDT) Anatomical Region Laterality Modality Abdomen Ultrasound 11/11/2024 5:25 PM CDT Impressions 11/11/2024 5:46 PM CDT IMPRESSION: 1. Punctate echogenic foci seen along the wall of the gallbladder may represent tiny polyps, consider follow-up. 2. No definite evidence of acute cholecystitis. 3. Borderline hydronephrosis in the right kidney. > Interpreting Provider: Panchito Hannah MD on 11/11/2024 5:46 PM Narrative 11/11/2024 5:46 PM CDT PROCEDURE: US ABDOMEN LIMITED DATE/TIME OF EXAM: 11/11/2024 5:04 PM CLINICAL INFORMATION: None relevant/not provided if blank. Indication: R74.01: Transaminitis Additional History: COMPARISON: None. TECHNIQUE: Real-time ultrasound of the upper abdomen with DICOM image capture performed by cath lab technologist. Findings: Pancreas appears normal. Liver has a heterogenous echotexture. No focal intrahepatic lesions are seen. Main portal vein and hepatic veins are patent. Common bile duct measures up to 3 mm. Small echogenic foci seen in the gallbladder there represent tiny polyps are indeterminate. Follow-up could be obtained. Right kidney measures 12.3 x 4.3 x 5.5 cm with borderline hydronephrosis. Procedure Note Panchito Hannah MD - 11/11/2024 PROCEDURE: US ABDOMEN LIMITED DATE/TIME OF EXAM: 11/11/2024 5:04 PM CLINICAL INFORMATION: None relevant/not provided if blank. Indication: R74.01: Transaminitis Additional History: COMPARISON: None. TECHNIQUE: Real-time ultrasound of the upper abdomen with DICOM image capture performed by cath lab technologist. Findings: Pancreas appears normal. Liver has a heterogenous echotexture.No focal intrahepatic lesions are seen. Main portal vein and hepatic veinsare patent. Common bile duct measures up to 3 mm. Small echogenic foci seenin the gallbladder there represent tiny polyps are indeterminate. Follow-up could be obtained. Right kidney measures 12.3 x 4.3 x 5.5 cm with borderline hydronephrosis. IMPRESSION: 1. Punctate echogenic foci seen along the wall of the gallbladder may represent tiny polyps, consider follow-up. 2. No definite evidence of acute cholecystitis. 3. Borderline hydronephrosis in the right kidney. > Interpreting Provider: Panchito Hannah MD on 11/11/2024 5:46 PM Tuan Woodward MD US ORDERABLES Final Result * (ABNORMAL) FERRITIN (11/11/2024 3:57 PM CDT) [facility] [facility] Ferritin 1,813(H) 5 - 204 ng/mL 11/11/2024 7:40 PM CDT [facility] Blood BLOOD SPECIMEN / Unknown Venipuncture / Unknown 11/11/2024 3:57 PM CDT 11/11/2024 4:02 PM CDT uTan Woodward MD LAB - CHEMISTRY ORDERABLES Catherine l Result Performing Organization Address City/State/[facility] Co de Phone Number [facility] [address] [place] [address] * (ABNORMAL) DIFFERENTIAL MANUAL (11/08/2024 5:26 AM CDT) [facility] Neutrophil % 68 41 - 74 % 11/08/2024 6:43 AM CDT [facility] Lymphocyte % 26 17 - 47 % 11/08/2024 6:43 AM CDT [facility] Monocyte % 3 3 - 11 % 11/08/2024 6:43 AM CDT [facility] Eosinophil % 2 0 - 7 % 11/08/2024 6:43 AM CDT [facility] Myelocyte % 1(H) 0% % 11/08/2024 6:43 AM CDT [facility] Neutrophil Absolute 11.70(H) 1.60 - 7.50 x10E9/L 11/08/2024 6:43 AM CDT [facility] Lymphocyte Absolute 4.47(H) 1.00 - 4.40 x10E9/L 11/08/2024 6:43 AM CDT [facility] Monocyte Absolute 0.52 0.15 - 1.00 x10E9/L 11/08/2024 6:43 AM CDT [facility] Eosinophil Absolute 0.34 0.00 - 0.60 x10E9/L 11/08/2024 6:43 AM CDT [facility] RBC Morphology NORMAL 11/08/2024 6:43 AM CDT [facility] Blood BLOOD SPECIMEN / Unknown Lab Venipuncture / Unknown 11/08/2024 5:26 AM CDT 11/08/2024 6:06 AM CDT Sonu Marin MD LAB - HEMATOLOGY ORDERABLES Fi nal Result [facility] [address] [place] [address] * PATHOLOGY TISSUE EXAM (STL) (11/07/2024 3:06 AM CDT) Case Report Surgical Pathology Report Case: [id number] Authorizing Provider: Mora Zabala MD Collected: 11/07/2024 03:06 AM Ordering Location: [facility] Received: 11/07/2024 07:43 AM Pathologist: Alice Espinoza MD Specimen: Placenta 11/11/2024 10:59 AM CDT [facility] Final Diagnosis Placenta, delivery - Hypermature placenta (weight approximately 10th percentile for gestational age) - Chorangiomas, one infarcted - Focal avascular terminal villi - membranes with no histopathologic abnormality - Three-vessel umbilical cord with paramarginal insertion 11/11/2024 10:59 AM CDT [facility] at 1059 CDT Clinical History The patient is a 29-year-old woman at 35 weeks, 3 days gestation. Procedure: delivery. 11/11/2024 10:59 AM CDT [facility] Gross Description The specimen is identified with the patient's name and date of . Received fresh and placed in formalin, specimen A, placenta is a placental disc and accessory lobe with attached umbilical cord and membranes. Umbilical cord is inserted paramarginally, 20.2 cm long and 1.2 cm in diameter. The cord is tri-vascular and appropriately coiled. The membranes insert marginally and are segundo, mildly translucent. The surface is blue-segundo with normal vasculature. The placental disc is 360 g, with the main disc measuring 12.5 x 13.2 x 1.6 cm, and the accessory lobe measuring 9.5 x 8.8 x 2.0 cm. Sectioning shows predominantly red-brown, spongy cut surfaces; a peripheral pink-white, fibrous lesion, 0.7 cm in greatest dimension, less than 5% of the cut surfaces. Canal Driver sections submitted as follows: A1-umbilical cord and membrane roll, O2-Y3-ocwvruqc, A4-peripheral fibrous lesion, A5-main lobe to accessory lobe, A6-accessory lobe lesion. LJ 11/11/2024 10:59 AM CDT [facility] Microscopic Description Microscopic examination substantiates the above diagnosis. 11/11/2024 10:59 AM CDT [facility] Pathologist Location at [facility] 11/11/2024 10:59 AM CDT [facility] Disclaimer All histochemical and/or immunohistochemical results are interpreted with controls that demonstrate appropriate staining reactions before reporting results. Note on use of immunocytochemistry reagents: This test was developed and its performance characteristic determined by [facility], Department of Laboratory Medicine. It has not been cleared or approved by the U.S. Food and Drug Administration (FDA). The FDA has determined that such clearance or approval is not necessary. The test is used for clinical purpose. It should not be regarded as investigational or for research. This laboratory is certified to perform high complexity testing. The performance characteristics of the IHC/IBRAHIMA assays have been validated on formalin-fixed paraffin embedded tissues only. The assays have not been validated on decalcified tissues. Results should be interpreted with caution. 11/11/2024 10:59 AM CDT [facility] Embedded Images 11/11/2024 10:59 AM CDT [facility] Pathology/Cytolo gy ENTIRE PLACENTA / Unknown Collection / Unknown 11/07/2024 3:06 AM CDT 11/07/2024 7:43 AM CDT us Mora Zabala MD LAB - PATHOLOGY/CYTOLOGY ORDERA BLES Final Result [facility] [address] [place] [address] * (ABNORMAL) BLOOD GASES CORD JACKY (ISTAT) (11/07/2024 2:52 AM CDT) pH Cord Venous POCT 7.23(L) 7.28 - 7.40 pH 11/07/2024 3:03 AM CDT [facility] pCO2 Cord Venous POCT 55.1(H) 35 - 45 mm hg 11/07/2024 3:03 AM CDT [facility] pO2 Cord Venous POCT 24 22 - 33 mm hg 11/07/2024 3:03 AM CDT [facility] HCO3 Cord Arterial POCT 23.1 22 - 24 mmol/L 11/07/2024 3:03 AM CDT [facility] BE Cord Venous POCT Calc -6 -6.4 - 1.6 mmol/L 11/07/2024 3:03 AM CDT [facility] TCO2 Cord Venous POCT 25 22 - 30 mmol/L 11/07/2024 3:03 AM CDT [facility] O2 Saturation % Cord Venous Calc POCT 31 % 11/07/2024 3:03 AM CDT [facility] Site CORD JACKY 11/07/2024 3:03 AM CDT [facility] Sample iSTAT CORD JACKY 11/07/2024 3:03 AM [facility] Blood CORD BLOOD SPECIMEN / Unknown 11/07/2024 2:52 AM CDT 11/07/2024 3:03 AM CDT Sonu Marin MD LAB - POINT OF CARE ORDERABLES Final Result [facility] [address] [place] [address] * (ABNORMAL) BLOOD GASES CORD ART (ISTAT) (11/07/2024 2:48 AM CDT) pH Cord Arterial POCT 7.14(L) 7.20 - 7.34 pH 11/07[facility]2024 3:[facility] pCO2 Cord Arterial POCT 72.7(HH) 45 - 55 mm hg 11/07/2024 3:03 AM CDT [facility] pO2 Cord Arterial POCT 24 12 - 25 mm hg 11/07/2024 3:03 AM CDT [facility] HCO3 Cord Arterial POCT 24.6(H) 22 - 24 mmol/L 11/07/2024 3:03 AM CDT [facility] BE Cord Arterial POCT -7(L) -2.9 - 8.3 mmol/L 11/07/2024 3:03 AM CDT [facility] TCO2 Cord Arterial POCT 27 mmol/L 11/07/2024 3:03 AM CDT [facility] O2 Saturation Cord Art % Calc POCT 26 % 11/07/2024 3:03 AM CDT [facility] Site CORD ART 11/07/2024 3:03 AM CDT [facility] Sample iSTAT CORD ART 11/07/2024 3:03 AM CDT [facility] Blood CORD BLOOD SPECIMEN / Unknown 11/07/2024 2:48 AM CDT 11/07/2024 3:03 AM CDT Sonu Marin MD LAB - POINT OF CARE ORDERABLES Final Result Performing Organization Address City/State/[facility] Co de Phone Number [facility] [address] [place] [address] * EPIDURAL BLOCK PERF (11/07/2024 1:44 AM CDT) Narrative Kylie Sheets APRN-SPEEDER WORKER - 11/07/2024 1:44 AM CDT Kylie Sheets APRN-CRNA 11/07/2024 2:08 AM Neuraxial Block Note Pre-Procedure: Procedure Name: Neuraxial Block Patient Location: OB Indications: labor analgesia Pre-Anesthetic Checklist: Patient identified, IV Checked, Risks and benefits discussed, Surgical consent verified, Monitors and equipment, Site examined, Pre-op evaluation done, Time-out performed, Informed consent obtained, Questions answered/anesthesia questions answered and Allergies reviewed Anticoagulation/ Anti-thrombosis status confirmed? Yes Monitors: BP and continuous pluse ox Patient Condition: awake Patient Sedated? No Procedure: Block Type: CSE Prep: Betadine Sterile Field: mask, cap/hat, sterile established and sterile gloves Approach: midline Skin was localized? Yes Skin localized with: lidocaine (XYLOCAINE MPF) 1 % injection - Infiltration 3 mL - 11/07/2024 1:52:00 AM Epidural Block: Is this procedure for postop pain? No Needle Type: Tuohy Needle gauge: 18 G Needle length: 90 mm Placement Site: L3-L4 Number of Attempts: 1 Loss of Resistance: 4 air Catheter length at skin (cm): 8 CSF Aspirated from catheter: No Blood Aspirated: No Test Dose: lidocaine 1.5% with 1-200,000 epinephrine 5 mL at 11/07/2024 1:54 AM Test Dose Response: No Epidural Infusion Medications: Ropivacaine: 0.2% with Fentanyl 2mcg/mL in NS , at 10 mL/hr Spinal Block: Needle Type: spinal needle Needle Gauge: 25 Needle Length: 127 mm Placement Site: L3-4 Number of Attempts: 2 CSF: free flow Events: paresthesia (left leg with 1st attempt) Degree of difficulty: moderate Procedure Tolerance: tolerated well Sensory Level: T7 Motor Blockade: Yes Position post procedure: left uterine displacement Vital Signs: Vital signs moniitored and stable throughout. See nursing vitals flowsheet for details. Start Time: 11/07/2024 1:44 AM End Time: 11/07/2024 1:54 AM Total Time: 10 Staff: Anesthesia Provider: Kylie Sheets APRN-SPEEDER WORKER - performed the procedure Additional Notes: Difficultly feeling spinous processes. With 1st attempt seemed to be too left, pt with paresthesia relieved with needle withdrawal. Stepped out to address call to other pt. Back and second attempt apparently more midline, easily placed to IVAN, spinal and catheter insertion Hua Bowman MD GENERAL ANESTHESIA ORDERABL ES Final Result * SYPHILIS ANTIBODY CASCADING REFLEX (11/06/2024 11:47 PM CDT) Only the most recent of3 resultswithin the time period is included. Treponema pallidum Antibody Non Reactive Non Reactive 11/07/2024 12:41 AM CDT [facility] Comment: No Laboratory evidence of syphilis infection. Note: Circulating antibodies may be low or undetectable in early infection. If recent exposure is suspected, re-draw sample in 2-4 weeks and repeat testing. Blood BLOOD SPECIMEN / Unknown Venipuncture / Unknown 11/06/2024 11:47 PM CDT 11/06/2024 11:51 PM CDT Sonu Marin MD LAB - SEROLOGY ORDERABLES Catherine gloria Result [facility] [address] [place] [address] * (ABNORMAL) PROTEIN CREATININE RATIO URINE RANDOM PNL (11/06/2024 4:19 PM CDT) Protein Urine 13.0(H) <11.9 mg/dL 11/06/2024 4:49 PM CDT [facility] Creatinine Urine 39.10 mg/dL 11/06/2024 4:49 PM CDT [facility] Protein/Creatin ine Ratio Urine 0.33 11/06/2024 4:49 PM CDT [facility] Urine URINE SPECIMEN OBTAINED BY CLEAN CATCH PROCEDURE / Unknown Collection / Unknown 11/06/2024 4:19 PM CDT 11/06/2024 4:24 PM CDT Sonu Marin MD LAB - URINE CHEMISTRY ORDERABL ES Final Result [facility] [address] [place] [address] * Sonogram - Complete (11/05/2024 7:47 AM CDT) Pathologist [facility] [place] Linked Results Indication ======== tPTL FGR on outside scan NIPT low risk per patient History ====== OB History 1 Maternal Assessment Physical Exam Height 170 cm, 5 ft 7 in. Initial weight 69 kg, 152 lb. Initial BMI 23.81 kg/m Method ====== Transabdominal ultrasound. View: Suboptimal view: limited by late gestational age ========= Atkinson . Number of fetuses: 1 Dating ====== Date Details Gest. age AJ LMP 03/03/2024 Cycle: regular cycle 35 w + 2 d 12/08/2024 Stated AJ 12/08/2024 35 w + 2 d 12/08/2024 Previous U/S 04/24/2024 GA, GA 7 w + 3 d 35 w + 2 d 12/08/2024 U/S 11/05/2024 based upon AC, BPD, Femur, HC 35 w + 0 d 12/10/2024 Assigned dating based on the LMP, selected on 11/05/2024 35 w + 2 d 12/08/2024 General Evaluation Cardiac activity present. FHR 130 bpm. Presentation: cephalic Placenta: Placental site: fundal Umbilical cord: Cord vessels: 3 vessel cord. Insertion site: normal insertion Amniotic fluid: Amount of AF: normal. MVP 10.8 cm. ALDO 18.6 cm. Q1 10.8 cm, Q2 2.5 cm, Q3 2.8 cm, Q4 2.5 cm Biometry BPD 91.9 mm 37w 2d 95% Hadlock HC 319.4 mm 36w 0d 33% Hadlock AC 299.8 mm 34w 0d 20% Hadlock Femur 63.4 mm 32w 5d 3% Hadlock Humerus 53.5 mm 31w 1d <1% Misha HC / AC 1.07 -/- Hadlock Weight Calculation: EFW 2,359 g 20% Hadlock EFW (lb,oz) 5 lb 3 oz EFW by Hadlock ([id number]) appropriate Growth Overview Exam date GA BPD (mm) HC (mm) AC (mm) FL (mm) HL (mm) EFW (g) 11/05/2024 35w 2d 91.9 95% 319.4 33% 299.8 20% 63.4 3% 53.5 <1% 2359 20% Anatomy The following structures appear normal: Head / Neck Cranium. Face Orbits. Heart / Thorax LVOT view. 3-vessel view. 8-bqrugq-eznkrss view. Situs. Aortic arch view. Bicaval view. Great vessels. Right lung. Left lung. Diaphragm. Abdomen Stomach. Kidneys. Bladder. Bowel. Extremities / Skeleton Right arm. Feet. Right leg. Left foot. The following structures could not be adequately visualized: Head / Neck Lateral ventricles. Choroid plexus. Midline falx. Cavum septi pellucidi. Cerebellum. Cisterna magna. Thalami. Face Lips. Profile. Nose. Nasal bone. Heart / Thorax 4-chamber view. RVOT view. Ductal arch view. Abdomen Cord insertion. Genitals. Spine Cervical spine. Thoracic spine. Lumbar spine. Sacral spine. Extremities / Skeleton Hands. Left arm. Right foot. Left leg. Maternal Structures Right Ovary Not visualized Left Ovary Not visualized Impression ========= Single live intrauterine at 35w2d The size is AGA Normal AFV Incomplete anatomic survey No major malformations were seen within the limitations of ultrasound Comment ======== The patient was inpatient at the time of the study ultrasound alone cannot detect all structural, genetic, or functional , placental, or maternal abnormalities Follow-up ======== Ultrasound as clinically indicated and at the discretion of the inpatient management team Coding ====== Procedures 66257: US Preg Uterus Detailed [facility] [place] PACS Anatomical Region Laterality Modality Other 11/05/2024 7:47 AM CDT Sonu Marin MD [facility] ORDERABLES Edited Result - Final * CULTURE STREP B (11/05/2024 5:15 AM CDT) Culture Strep B Negative for beta-hemolytic Streptococcus Group B SULLY 11/08/2024 9:42 PM CDT [facility] MICROBIOLOGY Microbiology MISCELLANEOUS SAMPLES / Unknown Collection / Unknown 11/05/2024 5:15 AM CDT 11/05/2024 5:25 AM CDT Sonu Marin MD LAB - MICROBIOLOGY ORDERABLES Final Result [facility] MICROBIOLOGY [address] [place], [place] [address], [facility] [phone] from Last 3 Months Insurance [facility] [employer] Advance Directives * Full Code (Latest Code Status on File) Date Activated Date Inactivated Comments 11/06/2024 10:49 PM 11/09/2024 3:02 PM * Full Code Date Activated Date Inactivated Comments 11/06/2024 7:36 PM 11/06/2024 10:49 PM * Full Code Date Activated Date Inactivated Comments 11/05/2024 4:37 AM 11/06/2024 7:36 PM
--- OUTSIDE RECORDS SUMMARY | 2024-12-09 14:13 | XMS_ITS | Encounter Summary ---
Author Organization [facility] Address [address] [place] [address] Care Team Providers Care Modular Home Crew Member Name Role Phone Unavailable Primary Care Provider Unavailabl e Reason for Visit * Reason Onset Date Comments Care 11/11/2024 Encounter Details Date Type Department Care Team (Late st Contact Info) Description 11/11/2024 Telephone [facility] - MEDICAL PARASITOLOGIST [address] [place] [address] Ethan Cho MD [address] [facility] [address] [place] [address] Care Social History Tobacco Use Types Packs/Day Years [...] and heating? Not hard at all 11/14/2024 [facility]ias of Occupat ional Health - Occupational Stress [...] things needed for daily living? No 11/14/2024 [place] Depression Scale Answer Date Recorded [place] Depression Scale Total 6 11/11/2024 The thought [...] were you homeless or living in a usp (including now)? No 11/14/2024 Comments No Sex and Gender Information Value Date Recorded Sex Assigned at Female 11/11/2024 5:45 PM CDT Legal Sex Female 11:26 PM CDT Gender Identity Not on file Sexual Orientation Not on file documented as of this encounter Functional Status * Is person deaf or have serious hearing difficulty? Answer Date of Assessment Author No 11/05/2024 4:26 AM Brandy Torres RN * Is person blind or have serious difficulty seeing? Answer Date of Assessment Author No 11/05/2024 4:26 AM Brandy Torres RN * Does person have serious difficulty walking/climbing stairs? Answer Date of Assessment Author No 11/05/2024 4:26 AM Brandy Torres RN * Does person have difficulty dressing/bathing? Answer Date of Assessment Author No 11/05/2024 4:26 AM Brandy Torres RN * Does person have difficulty doing errands alone? Answer Date of Assessment Author No 11/05/2024 4:26 AM Brandy Torres RN documented as of this encounter Mental Status * Does person have difficulty concentrating/remembering/making decisions? Answer Entry Date Author No 11/05/2024 4:26 AM Brandy Torres RN documented in this encounter Miscellaneous Notes * Telephone Encounter - Rayray Herzog - 11/11/2024 2:17 PM CDT PT delivered 11/07/24 at [facility] referred over for 72hr BP check also has preeclampsia documented in this encounter Plan of Treatment Upcoming Encounters Date Type Department Care Team (Late st Contact Info) Description 12/13/2024 9:30 AM CDT Appointment [facility] Imaging Services - Ultrasound [address] [place] [address] Tay Rivera MD [address] [facility] [address] [place] [address] 12/17/2024 10:30 AM CDT Appointment [facility] [address], [address] [place] [id number] Tay Rivera MD [address] [facility] [address] [place] [address] documented as of this encounter Visit Diagnoses Not on filedocumented in this encounter
[2024-12-09 14:23] LABS: Hematocrit 38.6 % (37.0-47.0); Hemoglobin 13.0 g/dL (12.0-15.0); Mean Corpuscular HGB Conc 33.7 g/dl (32-36); Mean Corpuscular Hemoglobin 30.7 pg (26-34); Mean Corpuscular Volume 91.0 fl (80-100); Platelet Count Result 225 k/mm3 (150-375); Red Blood Count 4.24 M/mm3 (4.2-5.4); White Blood Count 7.4 K/mm3 (4.5-10.0)
[2024-12-09 16:34] LABS: Alanine Aminotransferase 34 U/L (6-35); Albumin Level 4.4 g/dL (3.5-5.1); Alkaline Phosphatase 76 U/L (38-126); Anion Gap 9 mmol/L (4-12); Aspartate Amino Transferase 49 U/L (14-36); Bilirubin,Total 0.3 mg/dL (0.2-1.3); Blood Urea Nitrogen 17 mg/dL (7-17); Calcium 9.1 mg/dL (8.4-10.2); Carbon Dioxide 24 mmol/L (22-30); Chloride 102 mmol/L (98-107); Estimated Glomerular Filt Rate > 60; Glucose 100 mg/dL (65-110); Potassium 4.5 mmol/L (3.4-5.0); Sodium 135 mmol/L (137-145); Total Protein 7.5 g/dL (6.3-8.2)
[2024-12-09 16:56] LABS: Iron 105 ug/dL (37-170); Percent Iron Saturation 36 % (20-50)
[2024-12-09 17:21] LABS: Ferritin 90.50 ng/mL (6.24-137)
== END 2024-12-09 14:11 | disposition home or self-care (01) ==
LOC: ANHLAB 14:11
PROVIDERS: Visit Provider Internal Medicine Hematology & Oncology
DX: R79.89 Other specified abnormal findings of blood chemistry (principal)
CPT/HCPCS: 36415; 80053; 82728; 83540; 83550; 85027